=== PATIENT | female | born 1960 | race Caucasian/White ===

== ENCOUNTER 2022-05-09 08:04 | Outpatient (CLI) | payer BC, SELFPAY ==
[2022-05-09 10:14] LABS: Albumin* 4.8 g/dL (3.3-5.0); Chloride* 102 mmol/L (96-114); Sodium* 140 mmol/L (135-149)
[2022-05-09 10:15] LABS: Potassium* 4.6 mmol/L (3.6-5.1)
[2022-05-09 10:17] LABS: Alanine Aminotransferase* 27 U/L (4-35); Alkaline Phosphatase* 80 U/L (40-150); Aspartate Amino Transferase* 55 U/L (12-35); Bilirubin Total* 0.6 mg/dL (0.1-1.5); Blood Urea Nitrogen* 13 mg/dL (7-30); Calcium* 9.9 mg/dL (8.4-10.6); Carbon Dioxide* 27 mmol/L (20-32); Cholesterol* 193 mg/dL (90-199); Creatinine* 0.5 mg/dL (0.5-1.5); Estimated Glomerular Filt Rate 107 ml/min; Glucose* 86 mg/dL (60-115); Triglycerides* 90 mg/dL (40-149)
[2022-05-09 10:18] LABS: HDL Cholesterol* 96 mg/dL (>=50); LDL Cholesterol Calculated 79 mg/dL (<100)
== END 2022-05-09 08:05 | disposition home or self-care (01) ==
PROVIDERS: PCP Family Medicine; Visit Provider Family Medicine
DX: Z13.220 Encounter for screening for lipoid disorders (principal); R63.4 Abnormal weight loss
CPT/HCPCS: 80053; 80061

== ENCOUNTER 2022-07-10 08:12 | Outpatient (CLI) | payer BC, SELFPAY ==
--- NOTE | 2022-07-10 08:15 | CRLHL7_ITS ---
For Patients: As a result of the Century Cures Act, medical imaging exams and procedure reports are released immediately into your electronic medical record. You may view this report before your referring provider. If you have questions, please contact your health care provider. Indication: Rectal pain. Technique: Three plane localizer, axial T1 weighted, axial T2 weighted, sagittal T2 weighted, coronal T2 weighted, 3 plane T2 weighted haste without and with fat suppression, and pre and post contrast axial, coronal, and sagittal T1 weighted fat-suppressed VIBE pulse sequences were obtained. 15 cc of IV dotarem. Comparison: None. Findings: There is an enhancing tract present, which courses through the right ischiorectal/ischioanal fossae, and these findings are consistent with a grade 3 trans sphincteric fistula. There is no associated secondary tract, abscess, or supralevator extension. The tract appears active, with enhancement after gadolinium, with a paucity of T2 prolongation on fluid sensitive sequences with fat suppression. The tract is best seen on series 15, images 52-63. Incidentally noted is enhancement surrounding the right ischial tuberosity, and to a lesser degree, the contralateral ischial tuberosity. Marrow signal intensity is normal. The differential diagnosis includes myositis or muscle strain. See image 48, series 15. Impression: 1. Active fistula tract, with enhancement after gadolinium, and mild prolongation of T2 relaxation times. 2. The tract appears as a transsphincteric fistula, coursing through the right ischiorectal/ischioanal fossae. 3. There is no secondary tract, abscess, or supralevator extension identified. 4. Asymmetric enhancement about the ischial tuberosities, without evidence for osteomyelitis. Consider myositis or muscle strain. Dictated by Silvestre Braga MD @ 07/11/2022 4:28:14 PM (Electronically Signed)
--- OUTSIDE RECORDS SUMMARY | 2022-07-10 08:15 | XMS_ITS | Encounter Summary ---
:1960 [facility] Address [address], [place] [address] Care Team Providers Name Role Phone Unavailable Primary Care Provider Unavailable Reason for Visit Reason Comments CONSULT Encounter Details Date Type Department Care Team Description 09/15/2017 Initial Consult Raphael Zamarripa M D Abnormal immunological finding in serum (Primary Dx); Rheumatology [address] Need for influenza vaccinati on; [address] Carpal tunnel syndrome of right wrist; Drive [place], [place] Fibromyalgia; [place] [address] Lateral epicondylitis of left elbow; [address] Ulnar neuropathy of left upp er extremity; Tobacco abuse Social History Tobacco Use Types Packs/Day Years Used Date Smoking Tobacco: Every Day Cigarettes Smokeless Tobacco: Never Sex Assigned at Date Recorded Not on file documented as of this encounter Last Filed Vital Signs Vital Sign Reading Time Taken Comments Blood Pressure 176/86 09/15/2017 1:28 PM MANAGER LANGUAGE Pulse 103 09/15/2017 1:28 PM MANAGER LANGUAGE Temperature - - Respiratory Rate - - Oxygen Saturation - - Inhaled Oxygen Concentration - - Weight 73.1 kg (161 lb 1.6 oz) 09/15/2017 1:28 PM MANAGER LANGUAGE Height - - Body Mass Index - - documented in this encounter Patient Instructions Patient InstructionsRaphael Merchant MD - 09/15/2017 1:30 PM CST Today, few lab tests, basement, lab. I think you have tennis elbow of the left elbow; This is a tendonitis, that accounts for the pain to touch on the left elbow. You also have ulnar nerve impingement at the left elbow that causes the tingling in the 4th and 5th fingers; This could be helped by surgery. You also have fibromyalgia - this accounts for the tight sore muscles, both arms, neck, upper back. You have some degenerative discs in the neck, but no severely pinched nerves. The neurologist was having trouble explaining your pain based on nerves, and only some of it is (theleft ulnar nerve). So, he ordered a bunch of tests. You were found to have a positive rheumatoid factor of 50, normal less than 14. At this point, I do not think you have rheumatoid arthritis (RA). RA would cause visiblyswollen knuckle joints, very stiff and sore in the morning. 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 The rheumatoid tests can turn positive years before getting RA. Smoking is a risk factor; need to consider quitting. There is another test of RA (blood) and we could do that; If positive, it really means your risk is high. So what to do? For the left hand finger tingling, need to ask Dr. Garvin about surgery For the left elbow tendonitis Stretching Icing Elbow band Possibly physical therapy Maybe cortisone injection. There are medications for fibromyalgia Gabapentin - can help with sleep; is sedating Cymbalta - mood medicine, but helps with pain, non-sedating, slow acting GER LANGUAGE documented in this encounter Progress Notes Raphael Merchant MD - 09/15/2017 1:30 PM CST RHEUMATOLOGY CONSULT NOTE This note was generated with voice activated woolen tester software and may contain typographical and word substitution errors. Consultation was requested by: Dameon Hooks MD for positive rheumatoid factor HPI: The patient is a 57-year-old female. No internal records were available. I was able to find some records from [facility] in the scanned documents. The patient has had bilateral carpal tunnel, ulnar nerve entrapment at the elbow, neck and arm pain. She had an EMG July 02 which showed bilateral carpal tunnel and left ulnar neuropathy. However, these findings were not felt to be severe enough to be accounting for her bilateral arm pain. MRI of the cervical spine at [facility] in July 2017 showed some foraminal stenosis at C4 C5 moderately severe on the left, moderate on the right and some moderate bilateral stenosis at C3 C4 and left C5 C6 but still these findings were not felt to be bad enough to explain her arm pain. She had been found to have arheumatoid factor 50 (0-14). Her sedimentation rate was 10, Sjogren's antibodies negative. She tested negative for hepatitis C, normal hemoglobin A1c, normal CPK, normal TSH, normal vitamin B-12, no evidence of monoclonal gammopathy, Lyme screen was negative. Tissue transglutaminase was negative Patient has seen Dr. Pastor Murphy of the orthopedic and fracture clinic in [place]. The arm pain has been described as constant, some days worse on one arm or the other. She denies relation to position oractivity. The pain has been present since the , slowly worsening over 30 years. She did have some tingling in the left hand 4th and 5th fingers. She feels her arms are somewhat weak. She had some occasional knee pain. Total protein was a little elevated at 8.5 on the protein electrophoresis. We reviewed her history in detail. She actually carries a diagnosis of fibromyalgia for many years ago. This likely accounts for her chronic aching and soreness in the muscles of the neck and upper back proximal arms and so forth. She states since last summer she has had more acute pain at the left lateral elbow. It bothers her with lifting things with an outstretched arm. She also has some tingling in the left 4th and 5th finger consistent with her ulnar neuropathy. She has some lesser tingling in the right hand. She has never been on any medication for fibromyalgia, never tried gabapentin or Cymbalta. She does have some difficulty getting to sleep and staying asleep, somewhat related to the leftlateral elbow pain. Her primary care provider is Mirza Brown MD, [facility], [place], [place]. She has seen Dr. Pastor Garvin at the orthopedic and fracture clinic regarding her DJD of the knees, had prior cortisone and viscosupplements injections. The patient has been a long-time smoker one pack per day since the . She denies any visibly swollen joints. 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 ROS: Comprehensive review of systems form filled out for today's visit was reviewed with the patient, placed into SDOC, and is otherwise negative except: Occasional cough, some gingivitis, occasional loose stools, dry mouth, anxiety. OBJECTIVE: VS: Per flow sheet. Wt: 161 General: NAD. Eyes: Externally clear. Mouth: Moist mucous membranes. No ulcers. Lymph: No cervical or groin adenopathy. Chest: CTA. Heart: RRR, no M/R/G. Abdomen: Bowel sounds present, soft, nontender, no palpable HSM. Musculoskeletal: All 4 limbs examined. The joint exam was negative for synovitis, deformity, or instability with the exception of: No swollen joints over the hands wrists elbows shoulders hips knees ankles or feet. She had multiple fibromyalgia tender points including neck, trapezius muscles, gluteal m uscles, greater trochanters, medial knees, rhomboid muscles, costosternal joints. Neurologic: Subjective tingling left 4th and 5th finger, no overt weakness of intrinsic ulnar muscles of the left hand positive Tinel's test over the wrist. She did have focal tenderness over the left lateral epicondyle, worse with resisted wrist extension Cutaneous: No rashes Spine: Good range of motion ASSESSMENT: 1: History of fibromyalgia, likely accounting for bilateral chronic arm and neck pain 2: Positive rheumatoid factor, likely secondary to smoking, at this point she does not have rheumatoid arthritis 3: Left ulnar neuropathy and right-sided carpal tunnel syndrome 4: Left lateral epicondylitis accounting for more acute left elbow pain 5: Cervical spondylosis PLAN: 1: Long discussion with the patient. I think what has made her case more complex is that there are multiple different issues accounting for pain here. She was found to have a positive rheumatoid factorbut at this point she clinically does not have rheumatoid arthritis. I will check a CCP antibody andhepatitis C serology. Her long-time history of smoking can certainly be a trigger for positive rheumatoid factor and does put her at risk at some point to develop rheumatoid arthritis but at this pointshe does not have the visibly swollen joints or morning stiffness that would suggest she has developed into rheumatoid arthritis. Dr. Hooks has done other appropriate tests such as protein electrophoresis and Sjogren's serologies which are other possible etiologies for a rheumatoid factor but those were normal/negative. I have advised the patient to follow-up with me if she develops swollen tender joints in her hands wrists or feet. 2: We discussed her history of fibromyalgia. This has been long-standing. This likely accounts for her more diffuse arm pain. She is willing to try some gabapentin 100-300 mg at night to help with painand sleep. She will discuss with Dr. Brown her response to this. The dose could be increased further if needed. Cymbalta would be another medication which may be of benefit. 3: In terms of her left lateral epicondylitis, gave her handout on this we discussed rest, icing, tennis elbow band, stretching and other strategies such as cortisone injections. 4: In terms of her left ulnar neuropathy she may need to pursue ulnar nerve transposition surgery, will follow-up with Dr. Garvin. She does have some cervical spondylosis but I do not think those are accounting for any of her hand/arm paresthesias, which seemed better explained on the basis of her ulnar neuropathy and carpal tunnel syndrome. 5: Strongly recommended smoking cessation. She says she is trying to cut back. Dameon Hooks MD , [facility] neurological clinic Pastor Garvin MD, [facility], [place], [place] Mirza Brown MD, [facility], [place], [place] Total time: 60 minutes, greater than 30 minutes counselling and educating on the above GER LANGUAGE documented in this encounter Plan of Treatment Not on filedocumented as of this encounter Results HCAB - Hepatitis C Virus Rosario with Reflex In-House (09/15/2017 2:23 PM MANAGER LANGUAGE) [facility] Method Time Signature Hepatitis C Nonreactive Nonreactive PN SOFT Antibody Specimen Anatomical Collection Method Collection Time Receive d Time (Source) Location / / Volume Laterality 09/15/2017 2:23 PM 8 6:09 MANAGER LANGUAGE PM MANAGER LANGUAGE Narrative PN SOFT - 09/15/2017 7:26 PM MANAGER LANGUAGE Performed at [address] [address] CLIA number [id number] Raphael Merchant MD LAB_1 Performing Organization Address [facility] Phon e Number PN SOFT [address] [place] [address] HBAG - Hepatitis B Surf Ag (09/15/2017 2:23 PM MANAGER LANGUAGE) [facility] Time Signature Hep B Surf Ag Nonreactive Nonreactive PN SOFT Specimen Anatomical Collection Method Collection Time Receive d Time (Source) Location / / Volume Laterality 09/15/2017 2:23 PM 8 6:16 MANAGER LANGUAGE PM MANAGER LANGUAGE Narrative PN SOFT - 09/15/2017 7:04 PM MANAGER LANGUAGE Performed at [address] [address] CLIA number [id number] Raphael Merchant MD LAB_1 Performing Organization Address [facility] Phon e Number PN SOFT [address] [place] [address] HBCB - Hepatitis B Core Antibody Total (09/15/2017 2:23 PM MANAGER LANGUAGE) [facility] Time Signature Hepatitis B Nonreactive PN SOFT Core Total Antibody Specimen Anatomical Collection Method Collection Time Receive d Time (Source) Location / / Volume Laterality 09/15/2017 2:23 PM 8 6:16 MANAGER LANGUAGE PM MANAGER LANGUAGE Narrative PN SOFT - 09/15/2017 7:24 PM MANAGER LANGUAGE Performed at [address] [address] CLIA number [id number] Raphael Merchant MD LAB_1 Performing Organization Address [facility] Phon e Number PN SOFT [address] [place] [address] CCPIG - Cyclic Citrullinated Peptide AB (09/15/2017 2:23 PM MANAGER LANGUAGE) Analysis Performed At [facility] CYCLIC 0.9 0.0 - 7.0 PN SOFT CITRULLINATED IU/mL PEPTIDEAB Comment: Reference Range: <7 Negative, 7 - 10 Equivocal, >10 Posit jaspreet Specimen Anatomical Collection Method Collection Time Receive d Time (Source) Location / / Volume Laterality 09/15/2017 2:23 PM 8 6:07 MANAGER LANGUAGE PM MANAGER LANGUAGE Narrative PN SOFT - 09/17/2017 1:25 PM MANAGER LANGUAGE Performed at [address] [address] CLIA number [id number] Raphael Merchant MD LAB_1 Performing Organization Address [facility] Phon e Number PN SOFT [address] [place] [address] (ABNORMAL) RHF - Rheumatoid Factor (09/15/2017 2:23 PM MANAGER LANGUAGE) athologist Signature Rheumatoid 31 (H) 0 - 30 PN SOFT Factor IU/mL Specimen Anatomical Collection Method Collection Time Receive d Time (Source) Location / / Volume Laterality 09/15/2017 2:23 PM 8 6:16 MANAGER LANGUAGE PM MANAGER LANGUAGE Narrative PN SOFT - 09/15/2017 6:45 PM MANAGER LANGUAGE Performed at [address] [address] CLIA number [id number] Raphael Merchant MD LAB_1 Performing Organization Address City/[facility] Phon e Number PN SOFT [address] [place] [address] documented in this encounter Visit Diagnoses Diagnosis Abnormal immunological finding in serum - Primary Other nonspecific findings on examinatio n of blood Need for influenza vaccination Need for prophylactic vaccination and in oculation against influenza Carpal tunnel syndrome of right wrist Carpal tunnel syndrome Fibromyalgia Mylagia and myositis, unspecified Lateral epicondylitis of left elbow Lateral epicondylitis of elbow Ulnar neuropathy of left upper extremity Tobacco abuse ([facility]C) Tobacco use disorder Abnormal immunological finding in serum Other nonspecific findings on examinatio n of blood documented in this encounter
--- OUTSIDE RECORDS SUMMARY | 2022-07-10 08:15 | XMS_ITS | Encounter Summary ---
:1960 Author Organization [facility] Address [address] [place] [address] Care Team Providers Name Role Phone Unavailable Primary Care Provider Unavailable Encounter Details Date Type Department Care Team Description 09/15/2017 Lab Visit [facility] Abnormal immunological [address] [place] [address] Social History Tobacco Use Types Packs/Day Years Used Date Smoking Tobacco: Every Day Cigarettes Smokeless Tobacco: Never Sex Assigned at Date Recorded Not on file documented as of this encounter Plan of Treatment Not on filedocumented as of this encounter Procedures Procedure Name Priority Date/Time Associated Diagnosis Comme nts HEP B SURFACE Routine 09/15/2017 2:23 PM Abnormal immunologica l Results for this ANTIGEN, NO REFLEX SAMPLE FINISHER finding in serum proce dure are in the results section. ANTI-CCP AB Routine 09/15/2017 2:23 PM Abnormal immunological Results for this SAMPLE FINISHER finding in serum procedure a re in the results section. RHEUMATOID FACTOR, Routine 09/15/2017 2:23 PM Abnormal immunol ogical Results for this QUANT SAMPLE FINISHER finding in serum procedure a re in the results section. HEPATITIS C Routine 09/15/2017 2:23 PM Abnormal immunological Results for this ANTIBODY, WITH SAMPLE FINISHER finding in serum procedure are in REFLEX the results section. HEPATITIS B CORE,AB Routine 09/15/2017 2:23 PM Abnormal immuno logical Results for this SAMPLE FINISHER finding in serum procedure a re in the results section. documented in this encounter Results HCAB - Hepatitis C Virus Rosario with Reflex In-House (09/15/2017 2:23 PM SAMPLE FINISHER) [facility] gist Method Time Signature Hepatitis C Nonreactive Nonreactive PN SOFT Antibody Specimen Anatomical Collection Method Collection Time Receive d Time (Source) Location / / Volume Laterality 09/15/2017 2:23 PM 8 6:09 SAMPLE FINISHER PM SAMPLE FINISHER Narrative PN SOFT - 09/15/2017 7:26 PM SAMPLE FINISHER Performed at [facility], [address] [place] [address] CLIA number [id number] Raphael Merchant MD LAB_1 Performing Organization Address [facility] Phon e Number PN SOFT [address] [place] [address] HBAG - Hepatitis B Surf Ag (09/15/2017 2:23 PM SAMPLE FINISHER) [facility] Method Time Signature Hep B Surf Ag Nonreactive Nonreactive PN SOFT Specimen Anatomical Collection Method Collection Time Receive d Time (Source) Location / / Volume Laterality 09/15/2017 2:23 PM 8 6:16 SAMPLE FINISHER PM SAMPLE FINISHER Narrative PN SOFT - 09/15/2017 7:04 PM SAMPLE FINISHER Performed at [facility], [address] [place] [address] CLIA number [id number] Raphael Merchant MD LAB_1 Performing Organization Address [facility] Phon e Number PN SOFT [address] [place] [address] HBCB - Hepatitis B Core Antibody Total (09/15/2017 2:23 PM SAMPLE FINISHER) [facility] Method Time Signature Hepatitis B Nonreactive PN SOFT Core Total Antibody Specimen Anatomical Collection Method Collection Time Receive d Time (Source) Location / / Volume Laterality 09/15/2017 2:23 PM 8 6:16 SAMPLE FINISHER PM SAMPLE FINISHER Narrative PN SOFT - 09/15/2017 7:24 PM SAMPLE FINISHER Performed at [facility], [address] [place] [address] CLIA number [id number] Raphael Merchant MD LAB_1 Performing Organization Address [facility] Phon e Number PN SOFT [address] [place] [address] CCPIG - Cyclic Citrullinated Peptide AB (09/15/2017 2:23 PM SAMPLE FINISHER) [facility] Signature CYCLIC 0.9 0.0 - 7.0 PN SOFT CITRULLINATED IU/mL PEPTIDEAB Comment: Reference Range: <7 Negative, 7 - 10 Equivocal, >10 Posit jaspreet Specimen Anatomical Collection Method Collection Time Receive d Time (Source) Location / / Volume Laterality 09/15/2017 2:23 PM 8 6:07 SAMPLE FINISHER PM SAMPLE FINISHER Narrative PN SOFT - 09/17/2017 1:25 PM SAMPLE FINISHER Performed at [place] [address] [place] [address] CLIA number [id number] Raphael Merchant MD LAB_1 Performing Organization Address [facility] Phon e Number PN SOFT [address] [place] [address] (ABNORMAL) RHF - Rheumatoid Factor (09/15/2017 2:23 PM SAMPLE FINISHER) athologist Signature Rheumatoid 31 (H) 0 - 30 PN SOFT Factor IU/mL Specimen Anatomical Collection Method Collection Time Receive d Time (Source) Location / / Volume Laterality 09/15/2017 2:23 PM 8 6:16 SAMPLE FINISHER PM SAMPLE FINISHER Narrative PN SOFT - 09/15/2017 6:45 PM SAMPLE FINISHER Performed at [facility], [facility] [place] [address] CLIA number [id number] Raphael Merchant MD LAB_1 Performing Organization Address [facility] Phon e Number PN SOFT [address] [place] [address] documented in this encounter Visit Diagnoses Diagnosis Abnormal immunological finding in serum Other nonspecific findings on examinatio n of blood documented in this encounter
--- OUTSIDE RECORDS SUMMARY | 2022-07-10 08:15 | XMS_ITS | Clinical Summary ---
:1960 [facility] Address [address], [place] [address] Care Team Providers Name Role Phone Needs Pcp, Assignment Primary Care Provider Source Comments You are receiving this document as you are listed as the primary care provider,follow-up provider, or the patient has been referred to you for consultation.This is in compliance with the Medicare and Medicaid EHR Incentive Program,which states Providers who transition their patient to another setting of careor provider of care or refers their patient to another provider of care shouldprovide summarycare record for each transition of care or referral. [employer] Allergies Active Allergy Reactions Severity Noted Date Comments Meperidine Nausea And Vomiting 09/15/2017 Medications Medication Sig Dispensed Refills Start Date End Date Status naproxen (NAPROSYN) 500 TK 1 T PO BID WF 1 7 Active MG tablet PRN P gabapentin (NEURONTIN) Take 1-3 Caps by 90 Cap 3 09/15/2017 Active 100 MG capsule mouth daily at bedtime. Active Problems Problem Noted Date Carpal tunnel syndrome of right wrist 09/15/2017 Abnormal immunological finding in serum 09/15/2017 Fibromyalgia 09/15/2017 Lateral epicondylitis of left elbow 09/15/2017 Ulnar neuropathy of left upper extremity 09/15/2017 Tobacco abuse 09/15/2017 Immunizations Name Administration Dates Next Due Influenza IIV4 (Quadrivalent) 0.5mL (70870) 09/15/2017 Social History Tobacco Use Types Packs/Day Years Used Date Smoking Tobacco: Every Day Cigarettes Smokeless Tobacco: Never Sex Assigned at Date Recorded Not on file Last Filed Vital Signs Vital Sign Reading Time Taken Comments Blood Pressure 176/86 09/15/2017 1:28 PM MONOGRAM TECHNICIAN Pulse 103 09/15/2017 1:28 PM MONOGRAM TECHNICIAN Temperature - - Respiratory Rate - - Oxygen Saturation - - Inhaled Oxygen Concentration - - Weight 73.1 kg (161 lb 1.6 oz) 09/15/2017 1:28 PM MONOGRAM TECHNICIAN Height - - Body Mass Index - - Plan of Treatment Health Maintenance Due Date Last Done Comments Cervical Cancer Screening Due 1960 Colon Cancer Screening Plan Due 1960 Mammogram 1960 COVID-19 Vaccine (#1) 1960 HIV Screening (Preventive 1978 Services) Adult Preventive Visit 1980 DTaP/Tdap/Td (1 - Tdap) 1981 Cholesterol 2007 Zoster/Shingles (1 of 2) 2012 Influenza (#1) 2022 09/15/2017 Hep C Screening (Preventive Completed 09/15/2017 Services) HepA Aged Out No longer eligib le based on patient's age to complete this topic HepB Aged Out No longer eligib le based on patient's age to complete this topic Hib Aged Out No longer eligib le based on patient's age to complete this topic IPV (Polio) Aged Out No longer eligib le based on patient's age to complete this topic MCV4 Aged Out No longer eligib le based on patient's age to complete this topic Pneumococcal Aged Out No longer eligib le based on patient's age to complete this topic Insurance Payer Benefit Plan / Subscriber ID Effective Dates Phone Addre ss Type Group BCBS [place] [id number] 2017-Present [address] [address] [place] [address] [phone] (Work) Care Teams Stable Helper Relationship Specialty Start Date End Date Needs Pcp, Assignment PCP - General 12/16/17 [facility] [place] [place] [address]
--- OUTSIDE RECORDS SUMMARY | 2022-07-10 08:15 | XMS_ITS | Encounter Summary ---
:1960 Author Organization [facility] Address [address], [place] [address] Care Team Providers Name Role Phone Needs Pcp, Assignment Primary Care Provider Reason for Visit Reason Comments Clinician Finder Team Encounter Details Date Type Department Care Team Description 06/25/[address] [facility] 3850 Needs Pcp, Clinician Finder Team Internal Medicine Assignment [address] [facility] [place] [address] [phone] Social History Tobacco Use Types Packs/Day Years Used Date Smoking Tobacco: Every Day Cigarettes Smokeless Tobacco: Never Sex Assigned at Date Recorded Not on file documented as of this encounter Plan of Treatment Not on filedocumented as of this encounter Visit Diagnoses Not on filedocumented in this encounter Care Teams Reinstatement Clerk Relationship Specialty Start Date End Date Needs Pcp, Assignment PCP - General 12/16/17 [place] [address] documented as of this encounter
== END 2022-07-10 08:13 | disposition home or self-care (01) ==
PROVIDERS: PCP Family Medicine; Visit Provider Surgery
DX: K62.89 Other specified diseases of anus and rectum (principal)
CPT/HCPCS: 72197; A9575

== ENCOUNTER 2022-07-24 11:34 | Emergency (ER) | payer BC, SELFPAY ==
[2022-07-24 11:46] VITALS: BP 138/82; PULSE 80; RESP 18; TEMP 36.5; O2SAT 98; BMI 22.1
--- NOTE | 2022-07-24 11:54 | CRLHL7_ITS ---
For Patients: As a result of the Century Cures Act, medical imaging exams and procedure reports are released immediately into your electronic medical record. You may view this report before your referring provider. If you have questions, please contact your health care provider. Indication: TRAUMA Technique: Right hand 3 views. Comparison: None Findings: Bones: Alignment is normal. No fractures or bone lesions. Small nikky ossicle adjacent to the ulnar styloid. Joint spaces: Minimal degenerative changes. Soft tissues: Unremarkable. Impression: No sign of acute injury. Dictated by Cholo Mishra MD @ 07/24/2022 12:43:15 PM (Electronically Signed)
--- OUTSIDE RECORDS SUMMARY | 2022-07-24 12:14 | XMS_ITS | Encounter Summary ---
:1960 Author Organization [facility] Address [address], [place] [address] Care Team Providers Name Role Phone Needs Pcp, Assignment Primary Care Provider Reason for Visit Reason Comments Clinician Finder Team Encounter Details Date Type Department Care Team Description 06/25/2018 Telephone [facility] 3850 Needs Pcp, Clinician Finder Team Internal Medicine Assignment 38[address] [facility] [place] [address] [phone] Social History Tobacco Use Types Packs/Day Years Used Date Smoking Tobacco: Every Day Cigarettes Smokeless Tobacco: Never Sex Assigned at Date Recorded Not on file documented as of this encounter Plan of Treatment Not on filedocumented as of this encounter Visit Diagnoses Not on filedocumented in this encounter Care Teams Body Shop Technician Relationship Specialty Start Date End Date Needs Pcp, Assignment PCP - General 12/16/17 [place] [address] documented as of this encounter
--- OUTSIDE RECORDS SUMMARY | 2022-07-24 12:14 | XMS_ITS | Encounter Summary ---
:1960 Author Organization [email or web address] Address [address], [place] [address] Care Team Providers Name Role Phone Unavailable Primary Care Provider Unavailable Reason for Visit Reason Comments CONSULT Encounter Details Date Type Department Care Team Description 09/15/2017 Initial Consult Raphael Zamarripa M D Abnormal immunological finding in serum (Primary Dx); Rheumatology [address] Need for influenza vaccinati on; [address] Carpal tunnel syndrome of right wrist; [address] [place], [place] Fibromyalgia; [place] [address] Lateral epicondylitis of left elbow; [address] 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] stiff and sore in the morning. 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 Consultation was requested by: Dameon Hooks MD for positive rheumatoid factor HPI: The patient is a 57-year-old female. No internal records were available. I was able to find some records from [facility] in the scanned documents. The patient has had bilateral carpal tunnel, ulnar nerve entrapment at the elbow, neck and arm pain. She had an EMG July 02 which showed bilateral carpal tunnel and left ulnar neuropathy. However, these findings were not felt to be severe enough to be accounting for her bilateral arm pain. MRI of the cervical spine at [facility] at [facility] in July 2017 showed some foraminal stenosis [...] of the orthopedic and fracture clinic in [place]. The arm pain has been described as [...] primary care provider is Mirza Brown MD, [facility], [place], [place]. She has seen Dr. 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 Dameon Hooks MD , [facility] neurological clinic Pastor Garvin MD, orthopedic and fracture clinic, [place], [place] Mirza Brown MD, [facility], [place], [place] Total time: 60 minutes, greater than 30 minutes counselling and educating on the above ATRIC DENTAL HYGIENIST documented in this encounter Plan of Treatment Not on filedocumented as of this encounter Results HCAB - Hepatitis C Virus Rosario with Reflex In-House (09/15/2017 2:23 PM PEDIATRIC DENTAL HYGIENIST) [facility] Method Time Signature Hepatitis C Nonreactive Nonreactive PN SOFT Antibody Specimen Anatomical Collection Method Collection Time Receive d Time (Source) Location / / Volume Laterality 09/15/2017 2:23 PM 8 6:09 PEDIATRIC DENTAL HYGIENIST PM PEDIATRIC DENTAL HYGIENIST Narrative PN SOFT - 09/15/2017 7:26 PM PEDIATRIC DENTAL HYGIENIST Performed at [address] [address] CLIA number [id number] Raphael Merchant MD LAB_1 Performing Organization Address [facility] Phon e Number PN SOFT [address] [place] [address] HBAG - Hepatitis B Surf Ag (09/15/2017 2:23 PM PEDIATRIC DENTAL HYGIENIST) [facility] Time Signature Hep B Surf Ag Nonreactive Nonreactive PN SOFT Specimen Anatomical Collection Method Collection Time Receive d Time (Source) Location / / Volume Laterality 09/15/2017 2:23 PM 8 6:16 PEDIATRIC DENTAL HYGIENIST PM PEDIATRIC DENTAL HYGIENIST Narrative PN SOFT - 09/15/2017 7:04 PM PEDIATRIC DENTAL HYGIENIST Performed at [address] [address] CLIA number [id number] Raphael Merchant MD LAB_1 Performing Organization Address [facility] Phon e Number PN SOFT [address] [place] [address] HBCB - Hepatitis B Core Antibody Total (09/15/2017 2:23 PM PEDIATRIC DENTAL HYGIENIST) [facility] Time Signature Hepatitis B Nonreactive PN SOFT Core Total Antibody Specimen Anatomical Collection Method Collection Time Receive d Time (Source) Location / / Volume Laterality 09/15/2017 2:23 PM 8 6:16 PEDIATRIC DENTAL HYGIENIST PM PEDIATRIC DENTAL HYGIENIST Narrative PN SOFT - 09/15/2017 7:24 PM PEDIATRIC DENTAL HYGIENIST Performed at [address] [address] CLIA number [id number] Raphael Merchant MD LAB_1 Performing Organization Address [facility] Phon e Number PN SOFT [address] [place] [address] CCPIG - Cyclic Citrullinated Peptide AB (09/15/2017 2:23 PM PEDIATRIC DENTAL HYGIENIST) Analysis Performed At [facility] CYCLIC 0.9 0.0 - 7.0 PN SOFT CITRULLINATED IU/mL PEPTIDEAB Comment: Reference Range: <7 Negative, 7 - 10 Equivocal, >10 Posit jaspreet Specimen Anatomical Collection Method Collection Time Receive d Time (Source) Location / / Volume Laterality 09/15/2017 2:23 PM 8 6:07 PEDIATRIC DENTAL HYGIENIST PM PEDIATRIC DENTAL HYGIENIST Narrative PN SOFT - 09/17/2017 1:25 PM PEDIATRIC DENTAL HYGIENIST Performed at [address] [address] CLIA number [id number] Raphael Merchant MD LAB_1 Performing Organization Address [facility] Phon e Number PN SOFT [address] [place] [address] (ABNORMAL) RHF - Rheumatoid Factor (09/15/2017 2:23 PM PEDIATRIC DENTAL HYGIENIST) athologist Signature Rheumatoid 31 (H) 0 - 30 PN SOFT Factor IU/mL Specimen Anatomical Collection Method Collection Time Receive d Time (Source) Location / / Volume Laterality 09/15/2017 2:23 PM 8 6:16 PEDIATRIC DENTAL HYGIENIST PM PEDIATRIC DENTAL HYGIENIST Narrative PN SOFT - 09/15/2017 6:45 PM PEDIATRIC DENTAL HYGIENIST Performed at [address] [address] CLIA number [id number] Raphael Merchant MD LAB_1 Performing Organization Address [facility] Phon e Number PN SOFT [address] [place] [address] documented in this encounter Visit Diagnoses Diagnosis [...]
--- OUTSIDE RECORDS SUMMARY | 2022-07-24 12:14 | XMS_ITS | Clinical Summary ---
:1960 [facility] Address [address], [place] [address] Care Team Providers Name Role Phone Needs [...] for each transition of care or referral. [employer] Allergies Active Allergy Reactions Severity Noted Date [...] Dates Next Due Influenza IIV4 (Quadrivalent) 0.5mL (86493) 09/15/2017 Social History Tobacco Use Types Packs/Day Years Used Date Smoking Tobacco: Every Day Cigarettes Smokeless Tobacco: Never Sex Assigned at Date Recorded Not on file Last Filed Vital Signs Vital Sign Reading Time Taken Comments Blood Pressure 176/86 09/15/2017 1:28 PM HEALTH RECORD TECHNICIAN Pulse 103 09/15/2017 1:28 PM HEALTH RECORD TECHNICIAN Temperature - - Respiratory Rate - - Oxygen Saturation - - Inhaled Oxygen Concentration - - Weight 73.1 kg (161 lb 1.6 oz) 09/15/2017 1:28 PM HEALTH RECORD TECHNICIAN Height - - Body Mass Index [...] Phone Addre ss Type Group [place]BS [place] [id number] 2017-Present [address] [address] [place] [address] [phone] (Work) Care Teams Fur Scraper Relationship Specialty Start Date End Date Needs Pcp, Assignment PCP - General 12/16/17 [facility] [address]
--- OUTSIDE RECORDS SUMMARY | 2022-07-24 12:14 | XMS_ITS | Encounter Summary ---
:1960 [facility] Address [address] [place] [address] Care Team Providers Name Role Phone Unavailable Primary Care Provider Unavailable Encounter Details Date Type Department Care Team Description 09/15/2017 Lab Visit [facility] Abnormal immunological [address] [place] [address] Social History Tobacco Use Types Packs/Day Years [...] l Results for this ANTIGEN, NO REFLEX HAND CLERICAL VERIFIER finding in serum proce dure are in the results section. ANTI-CCP AB Routine 09/15/2017 2:23 PM Abnormal immunological Results for this HAND CLERICAL VERIFIER finding in serum procedure a re in the results section. RHEUMATOID FACTOR, Routine 09/15/2017 2:23 PM Abnormal immunol ogical Results for this QUANT HAND CLERICAL VERIFIER finding in serum procedure a re in the results section. HEPATITIS C Routine 09/15/2017 2:23 PM Abnormal immunological Results for this ANTIBODY, WITH HAND CLERICAL VERIFIER finding in serum procedure are in REFLEX the results section. HEPATITIS B CORE,AB Routine 09/15/2017 2:23 PM Abnormal immuno logical Results for this HAND CLERICAL VERIFIER finding in serum procedure a re in the results section. documented in this encounter Results HCAB - Hepatitis C Virus Rosario with Reflex In-House (09/15/2017 2:23 PM HAND CLERICAL VERIFIER) [facility] gist Method Time Signature Hepatitis C Nonreactive Nonreactive PN SOFT Antibody Specimen Anatomical Collection Method Collection Time Receive d Time (Source) Location / / Volume Laterality 09/15/2017 2:23 PM 8 6:09 HAND CLERICAL VERIFIER PM HAND CLERICAL VERIFIER Narrative PN SOFT - 09/15/2017 7:26 PM HAND CLERICAL VERIFIER Performed at [facility], [address] [place] [address] CLIA number [id number] Raphael Merchant MD LAB_1 Performing Organization Address [facility] Phon e Number PN SOFT [address] [place] [address] HBAG - Hepatitis B Surf Ag (09/15/2017 2:23 PM HAND CLERICAL VERIFIER) [facility] Method Time Signature Hep B Surf Ag Nonreactive Nonreactive PN SOFT Specimen Anatomical Collection Method Collection Time Receive d Time (Source) Location / / Volume Laterality 09/15/2017 2:23 PM 8 6:16 HAND CLERICAL VERIFIER PM HAND CLERICAL VERIFIER Narrative PN SOFT - 09/15/2017 7:04 PM HAND CLERICAL VERIFIER Performed at [facility], [address] [place] [address] CLIA number [id number] Raphael Merchant MD LAB_1 Performing Organization Address [facility] Phon e Number PN SOFT [address] [place] [address] HBCB - Hepatitis B Core Antibody Total (09/15/2017 2:23 PM HAND CLERICAL VERIFIER) [facility] Method Time Signature Hepatitis B Nonreactive PN SOFT Core Total Antibody Specimen Anatomical Collection Method Collection Time Receive d Time (Source) Location / / Volume Laterality 09/15/2017 2:23 PM 8 6:16 HAND CLERICAL VERIFIER PM HAND CLERICAL VERIFIER Narrative PN SOFT - 09/15/2017 7:24 PM HAND CLERICAL VERIFIER Performed at [facility], [address] [place] [address] CLIA number [id number] Raphael Merchant MD LAB_1 Performing Organization Address [facility] Phon e Number PN SOFT [address] [place] [address] CCPIG - Cyclic Citrullinated Peptide AB (09/15/2017 2:23 PM HAND CLERICAL VERIFIER) [facility] Time Signature CYCLIC 0.9 0.0 - 7.0 PN SOFT CITRULLINATED IU/mL PEPTIDEAB Comment: Reference Range: <7 Negative, 7 - 10 Equivocal, >10 Posit jaspreet Specimen Anatomical Collection Method Collection Time Receive d Time (Source) Location / / Volume Laterality 09/15/2017 2:23 PM 8 6:07 HAND CLERICAL VERIFIER PM HAND CLERICAL VERIFIER Narrative PN SOFT - 09/17/2017 1:25 PM HAND CLERICAL VERIFIER Performed at [place] [address] [place] [address] CLIA number [id number] Raphael Merchant MD LAB_1 Performing Organization Address [facility] Phon e Number PN SOFT [address] [place] [address] (ABNORMAL) RHF - Rheumatoid Factor (09/15/2017 2:23 PM HAND CLERICAL VERIFIER) athologist Signature Rheumatoid 31 (H) 0 - 30 PN SOFT Factor IU/mL Specimen Anatomical Collection Method Collection Time Receive d Time (Source) Location / / Volume Laterality 09/15/2017 2:23 PM 8 6:16 HAND CLERICAL VERIFIER PM HAND CLERICAL VERIFIER Narrative PN SOFT - 09/15/2017 6:45 PM HAND CLERICAL VERIFIER Performed at [facility], [facility] [place] [address] CLIA number [id number] Raphael Merchant MD LAB_1 Performing Organization Address [facility] Phon e Number PN SOFT [address] [place] [address] documented in this encounter Visit Diagnoses Diagnosis Abnormal immunological finding in serum Other nonspecific findings on examinatio n of blood documented in this encounter
--- NOTE | 2022-07-24 12:33 | ED_ITS ---
HPI - General Adult General Chief complaint: Extremity Pain/Injury, Upper Stated complaint: Smashed right hand in car door Time Seen by Provider: 07/24/22 11:38 Source: patient Mode of arrival: ambulatory Limitations: no limitations History of Present Illness HPI narrative: 62-year-old female coming in today after slamming her right hand in her car door. She has pain right in the center of the hand. Denies pain or injuries anywhere else that are new today. He is not blood thinners. This occurred approximately 1 hour ago. Related Data Home Medications Medication Instructions Recorded Confirmed cyanocobalamin (vitamin B-12) 1,000 mcg PO DAILY 05/09/22 07/11/22 1,000 mcg tablet multivitamin (Multiple Vitamins 1 tab PO QDAY 05/09/22 07/11/22 tablet) Previous Rx's Medication Instructions Recorded escitalopram oxalate 10 mg tablet 10 mg PO QDAY #30 tabs 05/09/22 Allergies Allergy/AdvReac Type Severity Reaction Status Date / Time Sulfa (Sulfonamide Allergy Intermediate Rash Verified 07/11/22 15:29 Antibiotics) meperidine Allergy Mild hives, Verified 07/11/22 15:29 itching Molds & Smuts Allergy Unknown Uncoded 07/11/22 15:29 Review of Systems Narrative: Denies other injury. PFSH PFSH Medical History Anorectal fistula COVID History of osteoarthritis Rectal abscess Surgical History History of exploratory laparotomy History of partial surgical removal of colon History of vaginal hysterectomy S/P cholecystectomy Status post right rotator cuff repair (07/21/19) Social History Narrative: SOCIAL HISTORY: She is with 2 children. She works at [employer]. HABITS: Exercise is work mainly. 10 drinks/wk. No recreational drug use. smokes 1 ppd. FAMILY HISTORY: Father with small cell lung CA, of this. Brother of metastatic lung CA. No personal or family history of anesthesia reactions or bleeding disorders. Smoking Status: Current every day smoker Little interest or pleasure in doing things: nearly every day Feeling down, depressed, or hopeless: several days Exam Narrative: Exam Narrative: Well-nourished well-developed patient in no acute distress. Alert and oriented. Answers questions appropriately. HEENT: Normocephalic atraumatic. Pupils are equally round reactive to light. Extraocular muscles are intact. Conjunctivae are moist without any icterus noted. Extremities: Patient has swelling and ecchymoses just proximal to the 2nd knuckle. She has some tenderness there but is very mild. She has no significant tenderness over the knuckles themselves. She has no tenderness over the meta carpals. She can open and close her hand in a fist without difficulty. Normal radial pulse. Fingers are all vascularly intact. Const: Vital Signs, click to edit/add: Vital Signs - 24 hr 07/24/22 11:46 Temperature 97.7 F Pulse Rate [Right Pulse Oximeter] 80 Respiratory Rate 18 Blood Pressure [Ri ght Upper Arm] 138/82 Pulse Oximetry 98 Oxygen Delivery Me thod Room Air Course Course Hospital Course: X-ray of the hand, read by me, does not show any acute fractures. Vital Signs Vital signs: Initial Vital Signs Temperature 97.7 F 07/24/22 11:46 Temperature Source Temporal Artery Scan 07/24/22 11:46 Pulse Rate 80 07/24/22 11:46 Respiratory Rate 18 07/24/22 11:46 Blood Pressure 138/82 07/24/22 11:46 Blood Pressure Mean 100 07/24/22 11:46 Blood Pressure Position Sitting 07/24/22 11:46 Pulse Oximetry 98 07/24/22 11:46 Oxygen Delivery Method 07/24/22 11:46 Vital Signs Temperature 97.7 F 07/24/22 11:46 Pulse Rate 80 07/24/22 11:46 Respiratory Rate 18 07/24/22 11:46 Blood Pressure 138/82 07/24/22 11:46 Pulse Oximetry 98 07/24/22 11:46 Oxygen Delivery Method 07/24/22 11:46 Temperature 97.7 F 07/24/22 11:46 Pulse Rate 80 07/24/22 11:46 Respiratory Rate 18 07/24/22 11:46 Blood Pressure 138/82 07/24/22 11:46 Pulse Oximetry 98 07/24/22 11:46 Oxygen Delivery Method 07/24/22 11:46 Medical Decision Making MDM Narrative Medical decision making narrative: 62-year-old female contusion to the right hand. Discussed symptomatic treatment. Patient was agreeable and had no other questions. Imaging Data X-ray hand: Attestation: I have reviewed the pertinent imaging results. Radiologist's impression: Right hand 3 views. Comparison: None Findings: Bones: Alignment is normal. No fractures or bone lesions. Small nikky ossicle adjacent to the ulnar styloid. Joint spaces: Minimal degenerative changes. Soft tissues: Unremarkable. Impression: No sign of acute injury. Discharge Plan Discharge Clinical Impression: Contusion of hand Patient Disposition: Home, Self-Care Condition: Stable Additional Instructions: Elevate above the heart whenever you are resting. Okay to use ice to sore area- do not apply ice directly to skin. Okay to take Tylenol as needed/as directed for discomfort. Prescriptions: No Action multivitamin [Multiple Vitamins] Tablet 1 tab PO QDAY cyanocobalamin (vitamin B-12) 1,000 mcg tablet 1,000 mcg PO DAILY escitalopram oxalate 10 mg tablet 10 mg PO QDAY Qty: 30 1RF Follow Up/Referrals: Mirza Brown MD [Primary Care Provider] - Stand Alone Forms: [facility] Info Instructions
== END 2022-07-24 13:05 | disposition home or self-care (01) ==
PROVIDERS: Emergency Provider Family Medicine; PCP Family Medicine
DX: S60.221A Contusion of right hand, initial encounter (principal); W23.0XXA Caught, crushed, jammed, or pinched between moving objects, initial encounter
CPT/HCPCS: 73130; 99283; 99284

== ENCOUNTER 2022-07-26 14:28 | Outpatient (CLI) | payer BC, SELFPAY ==
--- NOTE | 2022-07-26 14:40 | CRLHL7_ITS ---
For Patients: As a result of the Century Cures Act, medical imaging exams and procedure reports are released immediately into your electronic medical record. You may view this report before your referring provider. If you have questions, please contact your health care provider. BILATERAL SCREENING MAMMOGRAM WITH COMPUTER-AIDED DETECTION TECHNIQUE: CC and MLO views were obtained. These mammographic images have been obtained using full-field digital technique. These mammographic images were interpreted with the benefit of computer-aided detection. COMPARISON FILM: 03/16/19, 01/01/18, 08/14/15 [place]. FINDINGS: The breasts are heterogeneously dense, which may obscure small masses IMPRESSION: There is no radiographic evidence for malignancy. ASSESSMENT: BI-RADS Category 1: Negative RECOMMENDATION: Routine screening mammogram in 1 year. A lay language report of this examination will be provided to the patient. Cholo Mishra M.D. Diagnostic Radiologist [email or web address] [place]/Dictated by: Cholo Mishra MD @ 07/29/2022 9:43:00 AM (Electronically Signed)
== END 2022-07-26 14:29 | disposition home or self-care (01) ==
LOC: MAMMO 14:29
PROVIDERS: PCP Family Medicine; Visit Provider Family Medicine
DX: Z12.31 Encounter for screening mammogram for malignant neoplasm of breast (principal); R92.2 Inconclusive mammogram
CPT/HCPCS: 77063; 77067

== ENCOUNTER 2022-12-27 09:30 | Outpatient (RCR) | payer BC, SELFPAY ==
--- NOTE | 2022-12-13 17:47 | OT.OPOE ---
OT Outpatient Ortho Eval OT Outpatient Ortho Eval Start: 12/11/22 12:30 Freq: Status: Active Protocol: Document 12/11/22 12:31 LCN (Rec: 12/11/22 12:34 LCN [id number]) E-signed By Mitra Najera, OTR/L, CLT OT OP Ortho Eval Details Type Type Eval Complexity Low Insurance Information Insurance Information Blue [employer] Outpatient History/Precautions Current Condition/Medical Diagnosis Referring Provider Meli Metha. PCP Mirza Marsh Treatment Diagnosis Left small finger fracture of proximal area of prox phalanx. Date of Onset 11/12/22 Other Conditions possible fibromyalgia. Did have pelvic surgery in Aug 2022 with 5-6 week recovery. Has had R RTC repair, may be needing TSA. and L RTC is needing a repair. 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 Currently working half days for her L small finger fracture through 12/29/22. Social History Critical Job Demands Pull,Lift,Prolonged Standing Other Critical Job Demands handling products, , money, chisholm box, scanning, moving cart items Hobbies spending time with 6 grandchildren age 3 -18. Fitness No regular regimen Oriented Mental Status No Concerns Ortho Subjective Subjective Subjective Rema Barney was walking through a rough parking lot, lost footing while holding her 3 y/o grandson and caught herself in a pot hole lifting his head, then head pinning her hand into edge of large pot hole on 11/12/22. She was sent home from work the next day and X ray reveals fracture at proximal shaft of proximal phalanx of L small finger. She was casted (had it replaced 2x due to edema/bruising). Released to velcro ulnar gutter forearm based splint with Meli Mehta on . Pain Assessment Pain Present Pain Present Pain Reported Location L small finger Description Tightness,Pressure,Throbbing Intensity 7 Goniometric Comments Goniometric Comments Goniometric Comments AROM-- of wrist planes are WNL . Flexion of small finger MCP 15 of 90, PIP 60 of 100, DIP 65 of 65. Composite flexion to 2.7 cm finger tip to distal palmar crease), no deviation or rotation noted during flexion. Ring finger also stiff, at MCP at PIP, limiting composite flexion to 1.5 of where .5 is WNL. Thumb has full opposition, IF/RF WNL. Edema-- SF Prox Phalanx of L side 5.5 cm and R is 4.8 cm. skin is dry, flakey distended with mild ecchymosis. Straddle Truck Driver tested using other digits of L hands, carefully for baseline, avoiding increase of pain. R social media editor is 45# , Lis 20 #. car pinch is 13# R and 10. 5 # L and 3 pt pinch is 14# andL is 11#. OT Objective Data Hand Hand Dominance Right OT Problems Problems Problems Decreased Strength,Decreased Range of Motion,Lifting, Pinching Other Problems Opening Containers,Dressing Patient Potential Excellent Assessment Assessment Assessment Sandy is having limited ROM, stiffness, pain,edema and reduced strength for using her L hand in ADL/vocational tasks after the fracture of L small finger proximal phalanx. 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 Occupational Therapy Treatment Plan - OP Potential Rehabilitation Potential Excellent Set Goals Goals Set with Patient Yes Goals Goals In 8 weeks, pt will demonstrate:? 1) Decreased pn to <2/10 80% of the time with sustained gripping, carrying groceries, scanning purchase items and cooking/cleaning tasks. 2) I HEP for stretching, gradual strengthening and self mgmt strategies. 3) improved L social media editor strength to 35# and pinch to 12# with L composite RF/SF flexion to <1. 0 CM with pain < 1/10. 4)??Pt to be fit with functional bracing (for PROM assist, protection at work) and use adaptive strategies to protect joint integrity to support less pain with ADL Target Date 02/09/23 Progress set Treatment Plan Treatment Plan Evaluation,Edema Control,Joint Mobilization,Manual Therapy, Splinting,Therapeutic Exercise ,Self-Care/Home Management, Education Expected Frequency 1-2x Week Expected Duration 6-8 Weeks Certification Certification I Certify That: Therapy Services Provided, Therapy Plan Established, Therapy Plan Reviewed Recertification Information Recertification Information Initial Certification Date 12/11/22 Recertification Due Date 02/09/23 Provider Signature Shows Agreement With POC & Medical Necessity Physician Comment/Change Comment or Changes Physician NPI Number #
== END 2023-04-26 23:59 | disposition home or self-care (01) ==
PROVIDERS: PCP Family Medicine; Visit Provider Physician Assistant Surgical
DX: S62.619A Displaced fracture of proximal phalanx of unspecified finger, initial encounter for closed fracture (principal); Z51.89 Encounter for other specified aftercare
CPT/HCPCS: 97110; 97140; 97165; L3913; X5282

== ENCOUNTER 2023-04-08 11:30 | Outpatient (CLI) | payer BC, SELFPAY ==
[2023-04-08 21:34] LABS: Mononuclear WBC Body Fluid* 9 %; Polynuclear WBC Body Fluid* 91 %; RBC, Body Fluid* 13000 Cells/uL; WBC, Body Fluid* 74541 Cells/uL
[2023-04-08 21:41] LABS: BF Clarity* Cloudy; BF Color Xanthochromic; BF Total Volume* 22
== END 2023-04-08 11:31 | disposition home or self-care (01) ==
PROVIDERS: PCP Family Medicine; Visit Provider Physician Assistant Surgical
DX: M17.11 Unilateral primary osteoarthritis, right knee (principal)
CPT/HCPCS: 87070; 87075; 87205; 89051; 89060

== ENCOUNTER 2024-04-08 10:50 | Emergency (ER) | payer BC, SELFPAY ==
[2024-04-08 11:05] VITALS: BP 163/90; PULSE 99; RESP 20; TEMP 36.4; O2SAT 97; BMI 20.6
--- NOTE | 2024-04-08 11:13 | ED_ITS ---
HPI - General Adult General Time Seen by Provider: 11:13 Date Seen: 04/08/24 Chief complaint: Chest Pain Stated complaint: chest pain x 2 weeks Time Seen by Provider: 04/08/24 11:07 Source: patient and RN notes reviewed Mode of arrival: ambulatory Limitations: no limitations History of Present Illness HPI narrative: This 64-year-old female was referred from her clinic appointment to the ER. She notes she has had about 2 weeks of pleuritic left chest pain, feels it along the base of the left chest wall, under the breast. She has had some night sweats but no fevers or chills. It wraps around her side into her back, she does note some increased reflux symptoms as well. One night last 2 week she woke up in the middle of the night with heartburn. Pain is progressively worse. She does feel short of breath with it. It is there constantly. She does have a smoker's cough, does smoke, pain is worse with coughing, bending down and breathing. She was not sick with any illness prior to the onset of this. She did try to schedule a clinic appointment, has noticed about a 45 lb weight loss over the last couple years. She does feel increased abdominal gas, increased abdominal bloating, some upper abdominal discomfort. She has had hysterectomy for history of cervical cancer back in the , since then has developed urinary urgency and urge incontinence. No other urinary symptoms. Her gallbladder is out. She has had a portion of her colon removed for diverticulitis per report. She has a dad and brother that of lung cancer, she has a brother that has cardiac issues. She herself has never had kidney stones. Related Data Previous Rx's ?Medication ?Instructions ?Recorded methocarbamol 500 mg tablet 500 - 750 mg (1 - 1.5 x 500 mg) PO 12/30/23 QHS #10 tabs prednisone 10 mg tablet 10 mg PO DIRECTED #30 tabs 12/30/23 omeprazole 40 mg capsule,delayed 40 mg PO DAILY #30 caps 04/08/24 release Allergies Allergy/AdvReac Type Severity Reaction Status Date / Time Sulfa (Sulfonamide Allergy Intermediate Rash Verified 01/01/24 09:14 Antibiotics) meperidine Allergy Mild hives, Verified 01/01/24 09:14 itching cyclobenzaprine Allergy Verified 04/08/24 11:10 [From Flexeril] Molds & Smuts Allergy Unknown Uncoded 01/01/24 09:14 Review of Systems Status of ROS: Reports: 6 or more systems reviewed and unremarkable except as noted in History and below [facility] Medical History (Updated 04/08/24 @ 14:23 by Vanessa Wells MD) GERD (gastroesophageal reflux disease) ?K21.9 - Gastro-esophageal reflux disease without esophagitis (ICD-10) Phalanx, proximal fracture of finger ?S62.619A - Displaced fracture of proximal phalanx of unspecified finger, initial encounter for closed fracture (ICD-10) Hand pain ?M79.643 - Pain in unspecified hand (ICD-10) 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 - Anorectal fistula (ICD-10) Rectal abscess ?K61.1 - Rectal abscess (ICD-10) COVID ?U07.1 - COVID-19 (ICD-10) History of osteoarthritis ?Z87.39 - Personal history of other diseases of the musculoskeletal system and connective tissue (ICD-10) Surgical History Status post right rotator cuff repair (07/21/19) ?Z98.890 - Other specified postprocedural states (ICD-10) S/P cholecystectomy ?Z90.49 - Acquired absence of other specified parts of digestive tract (ICD- 10) History of vaginal hysterectomy ?Z90.710 - Acquired absence of both cervix and uterus (ICD-10) History of partial surgical removal of colon ?Z90.49 - Acquired absence of other specified parts of digestive tract (ICD- 10) History of exploratory laparotomy ?Z98.890 - Other specified postprocedural states (ICD-10) Social History Narrative: SOCIAL HISTORY: She is with 2 children. She works at [employer]. HABITS: Exercise is work mainly. 10 drinks/wk. No recreational drug use. smokes 1 ppd. FAMILY HISTORY: Father with small cell lung CA, of this. Brother of metastatic lung CA. No personal or family history of anesthesia reactions or bleeding disorders. Smoking Status: Current every day smoker Do you use any of these nicotine containing products: None Second hand tobacco smoke exposure: Yes Little interest or pleasure in doing things: more than half the days Feeling down, depressed, or hopeless: more than half the days Exam Const: Vital Signs, click to edit/add: Vital Signs - 24 hr 04/08/24 11:05 Temperature 97.5 F L Pulse Rate [Left P ulse Oximeter] 99 Respiratory Rate 20 Blood Pressure [Le ft Upper Arm] 163/90 H Pulse Oximetry 97 Oxygen Delivery Me thod Room Air This 64-year-old female is alert, interactive, no apparent distress. Resting comfortably in the bed in exam room 6. Pupils equal round reactive, sclerae clear, extraocular muscles intact. Symmetrical facial function. Speech is normal, able to speak in complete sentences. Neck supple, no adenopathy, no thyromegaly masses or nodules. Lungs are clear, distant breath sounds but no wheezing or crackles, can hear lung bases good. No evidence of any rash. CV regular rate and rhythm, soft 1/6 right upper sternal border systolic murmur, normal S1-S2, no S3-S4. Abdomen is soft, no rebound or guarding, no organomegal y noted, no masses, normal bowel sounds. She has no lower extremity edema. Skin appears tanned and without rash. Documenting provider has reviewed patient's vital signs: yes Course Course ED Course: With her smoking status, weight loss in other symptoms, do worry about the potential for malignancy as well as possibility of pulmonary embolus as the cause of her chest pain and respiratory symptoms. We will image with chest CT PE protocol and go through abdomen and pelvis. We need to rule out these conditions. Other thoughts are worsening reflux with hiatal hernia, reflux esophagitis, other issues with chronic heartburn. We will do the CT imaging and if labs and CT imaging are negative, may need to proceed with EGD. Will get full complement of labs, will consider cardiac causes such as ischemia with EKG and troponin. Her pain has been present for about 2 weeks now is now constant, solitary troponin and EKG should suffice to rule in or out acute ischemic disease. Reevaluation(s) Time of Reevaluation #1: 14:15 Reevaluation #1: Reviewed with patient her CT findings. There is no pulmonary embolus seen despite elevated D-dimer. I do think her D-dimer might being inflammatory marker here. On her imaging, she does have a few pulmonary nodules that will require a 1 year interval follow-up. She can have that scheduled through clinic. On the abdominal imaging, the gastric antrum is thickened. We discussed having her go on omeprazole and get an EGD. She would like me to get this scheduled. She will schedule follow-up in clinic with her primary. Vital Signs Vital signs: Initial Vital Signs Temperature 97.5 F L 04/08/24 11:05 Temperature Source Temporal Artery Scan 04/08/24 11:05 Pulse Rate 99 04/08/24 11:05 Pulse Rhythm Regular 04/08/24 11:05 Pulse Strength 3+ Normal 04/08/24 11:05 Respiratory Rate 20 04/08/24 11:05 Blood Pressure 163/90 H 04/08/24 11:05 Blood Pressure Mean 114 H 04/08/24 11:05 Blood Pressure Position Sitting 04/08/24 11:05 Pulse Oximetry 97 04/08/24 11:05 Oxygen Delivery Method Room Air 04/08/24 11:05 Vital Signs Temperature 97.5 F L 04/08/24 11:05 Pulse Rate 99 04/08/24 11:05 Respiratory Rate 20 04/08/24 11:05 Blood Pressure 163/90 H 04/08/24 11:05 Pulse Oximetry 97 04/08/24 11:05 Oxygen Delivery Method Room Air 04/08/24 11:05 Temperature 97.5 F L 04/08/24 11:05 Pulse Rate 99 04/08/24 11:05 Respiratory Rate 20 04/08/24 11:05 Blood Pressure 163/90 H 04/08/24 11:05 Pulse Oximetry 97 04/08/24 11:05 Oxygen Delivery Method Room Air 04/08/24 11:05 Medical Decision Making Lab Data Lab results reviewed: Yes I reviewed the patient's lab results Labs: Lab Results 04/08/24 04/08/24 04/08/24 Range/Units 11:25 11:50 12:30 WBC 9.11 (4.50-11.00) K/uL RBC 4.23 (4.00-5.20) m/uL Hgb 14.0 (12.0-16.0) gm/dL Hct 42.8 (33.0-51.0) % MCV 101 H (80-100) fL MCH 33 (26-34) pg MCHC 33 (32-36) gm/dL RDW Coeff of Alejandro 12.5 (11.5-15.5) % Plt Count 220 (140-440) K/uL Neut % (Auto) 67.2 (42.0-72.0) % Lymph % (Auto) 21.4 (20-44) % Douglas % (Auto) 9.3 (0.0-11.0) % Eos % (Auto) 1.9 (0.0-7.0) % Baso % (Auto) 0.1 (0.0-3.0) % Neut # (Auto) 6.12 (1.7-7.0) K/uL Lymph # (Auto) 1.95 (0.90-2.90) K/uL Douglas # (Auto) 0.80 (0.00-0.90) K/UL Eos # (Auto) 0.17 (0.00-0.50) K/uL Baso # (Auto) 0.01 (0.00-0.30) K/uL Abs Immat Gran (auto) 0.01 (0.00-0.30) K/uL Imm/Tot Granulo (auto) 0.1 % D-Dimer Quant (PE/DVT) 2.68 H (0.00-0.50) ug/ml VBG pH 7.388 (7.32-7.43) VBG pCO2 45 (40-50) mmHG VBG pO2 < 30.1 (25-47) mmHG VBG HCO3 27 (21-28) mmol/L Sodium 139 (135-149) mmol/L Potassium 3.6 (3.6-5.1) mmol/L Chloride 108 (96-114) mmol/L Carbon Dioxide 26 (20-32) mmol/L Anion Gap 5 L (7-15) mEq/L BUN 8 (7-30) mg/dL Creatinine 0.5 (0.5-1.5) mg/dL Estimated Creat Clear 50.12 Estimated GFR 106 ml/min Glucose 90 (60-115) mg/dL Calcium 9.3 (8.4-10.6) mg/dL Magnesium 1.7 (1.5-2.6) mg/dL Total Bilirubin 0.7 (0.1-1.5) mg/dL Direct Bilirubin 0.3 (0.0-0.5) mg/dL AST 35 (12-35) U/L ALT 17 (4-35) U/L Alkaline Phosphatase 78 (40-150) U/L Troponin I < 0.01 L (0.01-0.04) ng/mL C-Reactive Protein 0.6 (0.5-1.0) mg/dL NT-Pro-B Natriuret Pep 95 pg/mL Total Protein 7.6 (6.0-8.3) g/dL Albumin 4.6 (3.3-5.0) g/dL Lipase 107 (23-300) U/L Urine Color Yellow (Yellow) Urine Appearance Clear (Clear) Urine pH 7.0 (5.0-8.5) Ur Specific Chester 1.015 (1.000-1.030) Urine Protein Negative (Negative) Urine Glucose (UA) Negative (Negative) Urine Ketones Negative (Negative) Urine Blood Negative (Negative) Urine Nitrite Negative (Negative) Urine Bilirubin Negative (Negative) Urine Urobilinogen 0.2 (0.2-1.0) Ur Leukocyte Esterase Negative (Negative) Urine RBC 0-2 (0-2) Urine WBC 0-2 (0-5) Ur Squamous Epith Cells None (None-Few) Urine Bacteria None (None) POC Creatinine 0.5 L (0.6-1.3) mg/dl Imaging Data CT Chest/Ab/Pelvis: Attestation: I have reviewed the pertinent imaging results. Radiologist's impression: Patient: EVARISTO TATE Facility:?[facility] Patient ID:?[id number] Site Patient ID:?[id number]. Site :?[id number] Study:?CT-Chest Angio W/ 95CC ISOVUE-370 PE PROTOCOL-04/08/2024 12:49:08 PM Ordering Physician:Jose Antonio Mendez Final Report: Indication: LEFT CP, PLEURITIC SYMPTOMS, SOB Technique: CTA chest, pulmonary embolism protocol, utilizing 95 mL Isovue 370 Comparison: None Findings: No thyroid nodules. No thoracic lymphadenopathy. The heart is normal in size. No pericardial effusion. Coronary artery calcifications. The thoracic aorta and pulmonary artery are normal in caliber. No pulmonary embolism. No focal airspace consolidation, pleural effusion, or pneumothorax. Trace centrilobular emphysematous changes in the bilateral lung apices. No suspicious pulmonary nodules or masses. There are a few sub 4 millimeter, sub pleural pulmonary nodules bilaterally, likely benign. The airways are clear. The soft tissues are unremarkable. There is no acute fracture or malalignment. Degenerative changes of the right shoulder and multilevel degenerative changes throughout the spine. No suspicious osseous lesions. Please see dedicated CT abdomen/pelvis for description of abdominopelvic findings. Impression: 1. No CT evidence of acute process involving the thorax; specifically, no pulmonary embolism. 2. There are a few tiny subpleural pulmonary nodules, likely benign. If patient is at high risk for developing lung malignancy recommend repeat CT chest in 1 year; otherwise, no routine follow-up imaging is needed. Please note that all CT scans at this facility use dose modulation, iterative reconstruction, and/or weight-based dosing when appropriate to reduce radiation dose to as low as reasonably achievable. Dictated by Suresh Sheppard MD @ 04/08/2024 1:01:45 PM (Electronic Signature) Patient: EVARISTO TATE Facility:?[facility] Patient ID:?[id number] Site Patient ID:?[id number]. Site :?1960 Study:?CT-Abdomen/Pelvis W/ 95CC ISOVUE 370-04/08/2024 12:49:24 PM Ordering Physician:Jose Antonio Mendez Final Report: Indication: UPPER ABD DISCOMFORT / BLOATING / GAS, 45LB WEIGHT LOSS Technique: CT abdomen/pelvis with IV contrast, 95 mL Isovue 370 Comparison: CT abdomen/pelvis on July 18, 2011 Findings: Please see dedicated CTA chest for description of thoracic findings. The liver, gallbladder and biliary system, spleen, pancreas, and bilateral adrenal glands are unremarkable. The kidneys, ureters, and bladder are within normal limits in appearance. Tiny nonobstructing 1 millimeter stone at the lower pole of the left kidney (series number 3, image 62). Postsurgical changes of hysterectomy. No suspicious adnexal lesions. There is some smooth circumferential wall thickening of the distal gastric antru m (series number 2, image 55-62), may be secondary to gastritis in the appropriate clinical context versus normal anatomic variation. Otherwise, no CT evidence of bowel obstruction or inflammation. Colonic diverticulosis without CT evidence of acute diverticulitis. Colocolonic anastomosis of the sigmoid colon, grossly unchanged in appearance compared to prior exam. No free fluid or free air. No abscess. No abdominopelvic lymphadenopathy. No abdominal aortic aneurysm. Mild to moderate calcified and noncalcified atherosclerosis of the abdominal aorta. Soft tissue/musculoskeletal: No acute fracture or malalignment. Multilevel degenerative changes throughout the spine. No suspicious osseous lesions. Impression: 1. There is some smooth circumferential wall thickening of the distal gastric a ntrum (series number 2, image 55-62), similar in appearance compared to prior examination; may be secondary to gastritis in the appropriate clinical context versus normal anatomic variation. 2. Otherwise, no CT evidence of an acute process involving the abdomen or pelvis. 3. No abdominopelvic lymphadenopathy. Please note that all CT scans at this facility use dose modulation, iterative reconstruction, and/or weight-based dosing when appropriate to reduce radiation dose to as low as reasonably achievable. Dictated by Suresh Sheppard MD @ 04/08/2024 1:12:02 PM (Electronic Signature) ECG Data Attestation: I personally reviewed and interpreted this ECG as follows: (Normal sinus rhythm, 76 beats per minute. No evidence of any ischemia or infarct.) Prior ECG tracings: not available for review Discharge Plan Discharge Clinical Impression: Chest pain due to GERD Patient Disposition: Home, Self-Care Condition: Stable Instructions: GERD (Gastroesophageal Reflux Disease) (ED) Additional Instructions: Recommend omeprazole daily until further advised. Need to schedule follow-up in clinic with your primary provider within the next 1-2 weeks. An order has been placed for upper endoscopy which you do need. It is very important to follow through and insure that they do not see any abnormality within the stomach itself, biopsies may need to be obtained during the endoscopy. You also have incidental small pulmonary nodules which will require a 1 year follow-up, this can be scheduled outpatient through your primary. Activity Level: Activity as Tolerated Prescriptions: New omeprazole 40 mg capsule,delayed release(DR/EC) 40 mg PO DAILY Qty: 30 0RF No Action prednisone 10 mg tablet 10 mg PO DIRECTED Qty: 30 0RF Rx Instructions: Take four (4) tablets by mouth on days 1-3. Take three (3) tablets by mouth on days 4-6. Take two (2) tablets by mouth on days 7-9. Take one (1) tablet by mouth on days 10-12. methocarbamol 500 mg tablet 500 - 750 mg PO QHS Qty: 10 0RF Follow Up/Referrals: Mirza Brown MD [Primary Care Provider] - Stand Alone Forms: [employer]ighters Info Instructions
--- NOTE | 2024-04-08 11:22 | CRLHL7_ITS ---
For Patients: As a result of the Century Cures Act, medical imaging exams and procedure reports are released immediately into your electronic medical record. You may view this report before your referring provider. If you have questions, please contact your health care provider. Indication: UPPER ABD DISCOMFORT / BLOATING / GAS, 45LB WEIGHT LOSS Technique: CT abdomen/pelvis with IV contrast, 95 mL Isovue 370 Comparison: CT abdomen/pelvis on July 18, 2011 Findings: Please see dedicated CTA chest for description of thoracic findings. The liver, gallbladder and biliary system, spleen, pancreas, and bilateral adrenal glands are unremarkable. The kidneys, ureters, and bladder are within normal limits in appearance. Tiny nonobstructing 1 millimeter stone at the lower pole of the left kidney (series number 3, image 62). Postsurgical changes of hysterectomy. No suspicious adnexal lesions. There is some smooth circumferential wall thickening of the distal gastric antrum (series number 2, image 55-62), may be secondary to gastritis in the appropriate clinical context versus normal anatomic variation. Otherwise, no CT evidence of bowel obstruction or inflammation. Colonic diverticulosis without CT evidence of acute diverticulitis. Colocolonic anastomosis of the sigmoid colon, grossly unchanged in appearance compared to prior exam. No free fluid or free air. No abscess. No abdominopelvic lymphadenopathy. No abdominal aortic aneurysm. Mild to moderate calcified and noncalcified atherosclerosis of the abdominal aorta. Soft tissue/musculoskeletal: No acute fracture or malalignment. Multilevel degenerative changes throughout the spine. No suspicious osseous lesions. Impression: 1. There is some smooth circumferential wall thickening of the distal gastric antrum (series number 2, image 55-62), similar in appearance compared to prior examination; may be secondary to gastritis in the appropriate clinical context versus normal anatomic variation. 2. Otherwise, no CT evidence of an acute process involving the abdomen or pelvis. 3. No abdominopelvic lymphadenopathy. Please note that all CT scans at this facility use dose modulation, iterative reconstruction, and/or weight-based dosing when appropriate to reduce radiation dose to as low as reasonably achievable. Dictated by Suresh Sheppard MD @ 04/08/2024 1:12:02 PM (Electronically Signed)
--- NOTE | 2024-04-08 11:23 | CRLHL7_ITS ---
For Patients: As a result of the Century Cures Act, medical imaging exams and procedure reports are released immediately into your electronic medical record. You may view this report before your referring provider. If you have questions, please contact your health care provider. Indication: LEFT CP, PLEURITIC SYMPTOMS, SOB Technique: CTA chest, pulmonary embolism protocol, utilizing 95 mL Isovue 370 Comparison: None Findings: No thyroid nodules. No thoracic lymphadenopathy. The heart is normal in size. No pericardial effusion. Coronary artery calcifications. The thoracic aorta and pulmonary artery are normal in caliber. No pulmonary embolism. No focal airspace consolidation, pleural effusion, or pneumothorax. Trace centrilobular emphysematous changes in the bilateral lung apices. No suspicious pulmonary nodules or masses. There are a few sub 4 millimeter, sub pleural pulmonary nodules bilaterally, likely benign. The airways are clear. The soft tissues are unremarkable. There is no acute fracture or malalignment. Degenerative changes of the right shoulder and multilevel degenerative changes throughout the spine. No suspicious osseous lesions. Please see dedicated CT abdomen/pelvis for description of abdominopelvic findings. Impression: 1. No CT evidence of acute process involving the thorax; specifically, no pulmonary embolism. 2. There are a few tiny subpleural pulmonary nodules, likely benign. If patient is at high risk for developing lung malignancy recommend repeat CT chest in 1 year; otherwise, no routine follow-up imaging is needed. Please note that all CT scans at this facility use dose modulation, iterative reconstruction, and/or weight-based dosing when appropriate to reduce radiation dose to as low as reasonably achievable. Dictated by Suresh Sheppard MD @ 04/08/2024 1:01:45 PM (Electronically Signed)
--- OUTSIDE RECORDS SUMMARY | 2024-04-08 11:30 | XMS_ITS | Clinical Summary ---
Author Organization [facility] Address [address], [place] [address] Care Team Providers Care Senior Financial Reporting Analyst Name Role Phone Needs Pcp, Assignment Primary Care Provider [phone] Source Comments You are receiving this document as you are listed as the primary care provider,follow-up provider, or the patient has been referred to you for consultation.This is in compliance with the Medicare andMedicaid EHR Incentive Program,which states Providers who transition their patient to another setting of careor provider of care or refers their patient to another provider of care shouldprovide summary care record for each transition of care or referral. [employer] Allergies Active Allergy Reactions Criticality Noted Date Comments Meperidine Nausea And Vomiting 09/15/2017 Medications Medication Sig Dispensed Refills Start Date End Date Status naproxen (NAPROSYN) 500 MG tablet TK 1 T PO BID WF PRN P 1 08/08/2017 Active gabapentin (NEURONTIN) 100 MG capsule Take 1-3 Caps by mouth daily at bedtime. 90 Cap 3 09/15/2017 Active Active Problems Problem Noted Date Diagnosed Date Carpal tunnel syndrome of right wrist 09/15/2017 Abnormal immunological finding in serum 09/15/19 18 Fibromyalgia 09/15/2017 Lateral epicondylitis of left elbow 09/15/2017 Ulnar neuropathy of left upper extremity 018 Tobacco abuse 09/15/2017 Immunizations Name Administration Dates Next Due Influenza IIV4 (Quadrivalent) 0.5mL (07437) 09/01 Social History Tobacco Use Types Packs/Day Years Used Date Smoking Tobacco: Every Day Cigarettes Smokeless Tobacco: Never Sex and Gender Information Value Date Recorded Sex Assigned at Not on file Gender Identity Not on file Sexual Orientation Not on file Last Filed Vital Signs Vital Sign Reading Time Taken Comments Blood Pressure 176/86 09/15/2017 1:28 PM [facility]OTH COVERER Pulse 103 09/15/2017 1:28 PM [facility]ER Temperature - - Respiratory Rate - - Oxygen Saturation - - Inhaled Oxygen Concentration - - Weight 73.1 kg (161 lb 1.6 oz) 09/15/2017 1:28 P M [facility] COVERER Height - - Body Mass Index - - Plan of Treatment Health Maintenance Due Date Last Done Comments Cervical Cancer Screening Due 1960 Colon Cancer Screening Plan Due 1960 Mammogram 1960 HIV Screening (Preventive Services) 1978 Adult Preventive Visit 1980 DTaP/Tdap/Td (1 - Tdap) 1981 Cholesterol 2007 Zoster/Shingles (1 of 2) 2012 COVID-19 Vaccine (2022-2 4 season) 2023 Influenza (#1) 2024 09/15/2017 Hep C Screening (Preventive Services) Completed 09/15/2017 HepA Aged Out No longer eligi ble based on patient's age to complete this topic HepB Aged Out No longer eligi ble based on patient's age to complete this topic Hib Aged Out No longer eligi ble based on patient's age to complete this topic IPV (Polio) Aged Out No longer eligi ble based on patient's age to complete this topic MCV4 Aged Out No longer eligi ble based on patient's age to complete this topic Pneumococcal Aged Out No longer eligi ble based on patient's age to complete this topic Procedures Procedure Name Priority Date/Time Associated Diagnosis Comments HEPATITIS C ANTIBODY, WITH REFLEX Routine 09/15/2017 2:23 PM CLOTH COVERER Abnormal immunological finding in serum from Last 3 Months or Most Recently Relevant to Health Maintenance Results * [facility] - Hepatitis C Virus Rosario with Reflex In-House (09/15/2017 2:23 PM CLOTH COVERER) Hepatitis C Antibody Nonreactive Nonreactive PN SOFT 09/15/2017 2:23 PM CLOTH COVERER 09/15/2017 6:09 PM CLOTH COVERER Narrative PN SOFT - 09/15/2017 7:26 PM [facility]OTH C[facility]ER Performed at [address] [place] [address] CLIA number [id number] Raphael Merchant MD LAB_1 PN SOFT [address] [place] [address] from Last 3 Months or Most Recently Relevant to Health Maintenance Care Teams Senior Financial Reporting Analyst Relationship Specialty Start Date End Date Needs Pcp, [place] [address] PCP - General 12/16/17
--- OUTSIDE RECORDS SUMMARY | 2024-04-08 11:30 | XMS_ITS | Clinical Summary ---
Author Organization [facility] Address [address] [place] [id number] Care Team Providers Care Fitter Mechanic Name Role Phone Mirza Brown MD Primary Care Provider [phone] Allergies Active Allergy Reactions Criticality Noted Date Comments Meperidine Hives Medium 08/29/2022 Medications Medication Sig Dispensed Refills Start Date End Date Status meloxicam (MOBIC) 15 MG tablet Take 15 mg by mouth daily Active ibuprofen (ADVIL/MOTRIN) 200 MG tabletIndications:Pa in Take 200 mg by mouth every 4 hours as needed for pain Active oxyCODONE (ROXICODONE) 5 MG tabletIndications:An al fistula Take 1 tablet (5 mg) by mouth every 4 hours as needed for moderate to severe pain 10 tablet 08/30/2022 Active Social History Tobacco Use Types Packs/Day Years Used Date Smoking Tobacco: Every Day Cigarettes Smokeless Tobacco: Never Tobacco Cessation:Ready to Q uit: Not Asked; Counseling Given: Not Answered Alcohol Use Standard Drinks/Week Comments Yes 0 (1 standard drink = 0.6 oz pur e alcohol) socially Adolescent Education Answer Date Record ed Getting School Help Needed Not on file 06/15 Sex and Gender Information Value Date Recorded Sex Assigned at Not on file Gender Identity Not on file Sexual Orientation Not on file Last Filed Vital Signs Vital Sign Reading Time Taken Comments Blood Pressure 161/89 08/30/2022 7:15 PM IT SOFTWARE ENGINEER Pulse 75 08/30/2022 7:14 PM IT SOFTWARE ENGINEER Temperature 36.4 ??C (97.5 ??F) 08/30/2022 7:14 PM CS T Respiratory Rate 16 08/30/2022 7:15 PM IT SOFTWARE ENGINEER Oxygen Saturation 99% 08/30/2022 7:15 PM IT SOFTWARE ENGINEER Inhaled Oxygen Concentration - - Weight 56.7 kg (125 lb) 08/30/2022 2:12 PM IT SOFTWARE ENGINEER Height 160 cm (5' 3) 08/30/2022 2:12 PM IT SOFTWARE ENGINEER Body Mass Index 22.14 08/30/2022 2:12 PM IT SOFTWARE ENGINEER Plan of Treatment Health Maintenance Due Date Last Done Comments ADVANCE CARE PLANNING 1960 ANNUAL REVIEW OF HM ORDERS [address] CT COLONOGRAPHY 1962 FIT 1962 FLEX SIG 1962 GLUCOSE 1962 MAMMO SCREENING 1962 YEARLY PREVENTIVE VISIT 1962 sDNA (Cologuard) 1962 HIV SCREENING 1977 HEPATITIS C SCREENING 1980 PAP 1983 LIPID 2002 LUNG CANCER SCREENING 2012 ZOSTER IMMUNIZATION (1 of 2) 2012 RSV VACCINE ( & 60+) (1 - 1-dose 60+ series) 2022 COVID-19 Vaccine (3 - 2022- season) 2023 01/20/2021, 12/23/2020 Pneumococcal Vaccine: Pediatrics (0 to 5 Years) and At-Risk Patients (6 to 64 Years) (2 of 2 - PCV) 05/09/2023 05/09/2022 PHQ-2 (once per calendar year) 2023 INFLUENZA VACCINE (#1) 2024 9, 09/15/2017, 08/15/2016, Additional history exists DTAP/TDAP/TD IMMUNIZATION (3 - Td or Tdap) 05/09/2032 05/09/2022, 04/16/2011 COLONOSCOPY 08/30/2032 08/30/2022, 08/30/2022 COLORECTAL CANCER SCREENING 08/30/2032 HPV IMMUNIZATION Aged Out No longer e ligible based on patient's age to complete this topic IPV IMMUNIZATION Aged Out No longer e ligible based on patient's age to complete this topic MENINGITIS IMMUNIZATION Aged Out No l onger eligible based on patient's age to complete this topic RSV MONOCLONAL ANTIBODY Aged Out No l onger eligible based on patient's age to complete this topic Procedures Procedure Name Priority Date/Time Associated Diagnosis Comments COLONOSCOPY Routine 08/30/2022 4:05 PM IT SOFTWARE ENGINEER from Last 3 Months or Most Recently Relevant to Health Maintenance Results * COLONOSCOPY (08/30/2022 4:05 PM IT SOFTWARE ENGINEER) COLONOSCOPY [facility] Patient Name: Rema Barney ? Procedure Date: 08/30/2022 4:05 PM ? Date of : 1960 ?Admit Type: Outpatient Age: 62 ? Gender: Female Attending MD: ANGIE RODRIGUEZ MD Total Sedation Time: See anesthesia report. Instrument Name: 254 - Pediatric Colonoscope Procedure: ?Colonoscopy Indications: ?Screening for colorectal malignant neoplasm Providers: ?ANGIE RODRIGUEZ MD (Doctor) Referring MD: ? Medicines: ?Monitored Anesthesia Care Complications: ?No immediate complications. Procedure: ?Pre-Anesthesia Assessment: ?- Prior to the procedure, a History and Physical ?was performed, and patient medications and ?allergies were reviewed. The patient is competent. ?The risks and benefits of the procedure and the ?sedation options and risks were discussed with the ?patient. All questions were answered and informed ?consent was obtained. Patient identification and ?proposed procedure were verified by the physician ?and the nurse in the procedure room. Mental Status ?Examination: alert and oriented. Airway ?Examination: normal oropharyngeal airway and neck ?mobility. Respiratory Examination: clear to ?auscultation. CV Examination: normal. Prophylactic ?Antibiotics: The patient does not require ?prophylactic antibiotics. Prior Anticoagulants: The ?patient has taken no anticoagulant or antiplatelet ?agents. ASA Grade Assessment: II - A patient with ?mild systemic disease. After reviewing the risks ?and benefits, the patient was deemed in ?satisfactory condition to undergo the procedure. ?The anesthesia plan was to use moderate sedation / ?analgesia (conscious sedation). Immediately prior ?to administration of medications, the patient was ?re-assessed for adequacy to receive sedatives. The ?heart rate, respiratory rate, oxygen saturations, ?blood pressure, adequacy of pulmonary ventilation, ?and response to care were monitored throughout the ?procedure. The physical status of the patient was ?re-assessed after the procedure. ?After obtaining informed consent, the colonoscope ?was passed under direct vision. Throughout the ?procedure, the patient's blood pressure, pulse, and ?oxygen saturations were monitored continuously. The ?[email or web address] Pediatric Colonoscope Model #[id number]-WY712W, ?Endora #254, SN # [id number] was introduced through ?the anus and advanced to 5 cm into the ileum. The ?colonoscopy was performed with ease. The patient ?tolerated the procedure well. The quality of the ?bowel preparation was adequate to identify polyps. ?The terminal ileum, ileocecal valve, appendiceal ?orifice, and rectum were photographed. ? Findings: ? The perianal and digital rectal examinations were normal other than a ? scare adn sinus on the right lateral gluteal region. Pertinent negatives ? include normal sphincter tone and no palpable rectal lesions. ? The terminal ileum appeared normal. ? A 6 mm polyp was found in the sigmoid colon. The polyp was ? semi-pedunculated. The polyp was removed with a hot snare. Resection and ? retrieval were complete. Estimated blood loss: none. ? Many small and large-mouthed diverticula were found in the sigmoid ? colon, descending colon, transverse colon and ascending colon. ? The exam was otherwise without abnormality. ? The retroflexed view of the distal rectum and anal verge was normal and ? showed no anal or rectal abnormalities. ? Impression: ? - The examined portion of the ileum was normal. ?- One 6 mm polyp in the sigmoid colon, removed with ?a hot snare. Resected and retrieved. ?- Diverticulosis in the sigmoid colon, in the ?descending colon, in the transverse colon and in ?the ascending colon. ?- The examination was otherwise normal. ?- The distal rectum and anal verge are normal on ?retroflexion view. Recommendation: ? - Repeat colonoscopy in 5-10 years for surveillance ?based on pathology results. ? Procedure Code(s): ? --- Professional --- ? 26644, Colonoscopy, flexible; with removal of tumor(s), polyp(s), or ? other lesion(s) by snare technique Diagnosis Code(s): ? --- Professional --- ? Z12.11, Encounter for screening for malignant neoplasm of colon ? K63.5, Polyp of colon ? K57.30, Diverticulosis of large intestine without perforation or abscess ? without bleeding CPT copyright 2020 [employer]. All rights reserved. The codes documented in this report are preliminary and upon panelboard assembler review may be revised to meet current compliance requirements. ____ ANGIE RODRIGUEZ MD 08/30/2022 5:58:27 PM I was physically present for the entire viewing portion of the exam. ANGIE RODRIGUEZ MD Number of Addenda: 0 Note Initiated On: 08/30/2022 4:05 PM MRN: [id number] Procedure Date: ? 08/30/2022 4:05:43 PM Scope Withdrawal Time: 0 hours 21 minutes 13 seconds Total Procedure Duration: 0 hours 33 minutes 18 seconds Estimated Blood Loss: ? Scope In: 4:34:50 PM Scope Out: 5:08:08 PM RADIOLOGY RESULTS 08/30/2022 4:05 PM IT SOFTWARE ENGINEER Angie Rodriguez MD PROCEDURES RADIOLOGY RESULTS from Last 3 Months or Most Recently Relevant to Health Maintenance Care Teams Fitter Mechanic Relationship Specialty Start Date End Date Mirza Brown MD PCP - General Family Medicine 08/30/22
--- OUTSIDE RECORDS SUMMARY | 2024-04-08 11:30 | XMS_ITS | Referral Summary ---
Author Organization [facility] Address [address] [place] [address] Care Team Providers Care Silk Blocker Name Role Phone Mirza Brown MD Primary Care Provider [phone] Allergies Active Allergy Reactions Criticality Noted Date [...] Comments Blood Pressure 161/89 08/30/2022 7:15 PM INTERNATIONAL PROJECT MANAGER Pulse 75 08/30/2022 7:14 PM INTERNATIONAL PROJECT MANAGER Temperature 36.4 ??C (97.5 ??F) 08/30/2022 7:14 PM CS T Respiratory Rate 16 08/30/2022 7:15 PM INTERNATIONAL PROJECT MANAGER Oxygen Saturation 99% 08/30/2022 7:15 PM INTERNATIONAL PROJECT MANAGER Inhaled Oxygen Concentration - - Weight 56.7 kg (125 lb) 08/30/2022 2:12 PM INTERNATIONAL PROJECT MANAGER Height 160 cm (5' 3) 08/30/2022 2:12 PM INTERNATIONAL PROJECT MANAGER Body Mass Index 22.14 08/30/2022 2:12 PM INTERNATIONAL PROJECT MANAGER Plan of Treatment Not on file Procedures Procedure Name Priority Date/Time Associated Diagnosis Comments COLONOSCOPY Routine 08/30/2022 4:05 PM INTERNATIONAL PROJECT MANAGER from Last 3 Months or Most Recently Relevant to Health Maintenance Results * COLONOSCOPY (08/30/2022 4:05 PM INTERNATIONAL PROJECT MANAGER) [facility] COLONOSCOPY [facility] Patient Name: Rema Barney ? Procedure [...] and ?oxygen saturations were monitored continuously. The ?[employer] Pediatric Colonoscope Model #PCF-VF350D, ?Endora #254, SN # [id number] was introduced through ?the anus and advanced [...] Procedure Code(s): ? --- Professional --- ? 13504, Colonoscopy, flexible; with removal of tumor(s), polyp(s), or ? other lesion(s) by snare technique Diagnosis Code(s): ? --- Professional --- ? Z12.11, Encounter for screening for malignant neoplasm of colon ? K63.5, Polyp of colon ? K57.30, Diverticulosis of large intestine without perforation or abscess ? without bleeding CPT copyright 2020 [employer]. All rights reserved. The codes documented in this report are preliminary and upon shoulder pad molder review may be revised to meet current compliance requirements. ____ ANGIE RODRIGUEZ MD 08/30/2022 5:58:27 PM I was physically present for the entire viewing portion of the exam. ANGIE RODRIGUEZ MD Number of Addenda: 0 Note Initiated On: 08/30/2022 4:05 PM MRN: ?[id number] Procedure Date: ? 08/30/2022 4:05:43 PM Scope Withdrawal Time: 0 hours 21 minutes 13 seconds Total Procedure Duration: 0 hours 33 minutes 18 seconds Estimated Blood Loss: ? Scope In: 4:34:50 PM Scope Out: 5:08:08 PM RADIOLOGY RESULTS 08/30/2022 4:05 PM INTERNATIONAL PROJECT MANAGER Angie Rodriguez MD PROCEDURES RADIOLOGY RESULTS from Last 3 Months or Most Recently Relevant to Health Maintenance Care Teams Silk Blocker Relationship Specialty Start Date End Date Mirza Brown MD PCP - General Family Medicine 08/30/22
[2024-04-08 11:58] LABS: HCO3 VBG 27 mmol/L (21-28); PCO2 VBG 45 mmHG (40-50); PO2 VBG < 30.1 mmHG (25-47); pH VBG 7.388 (7.32-7.43)
[2024-04-08 12:02] LABS: Creatinine, Point-of-Care* 0.5 mg/dl (0.6-1.3)
[2024-04-08 12:04] LABS: Basophils Absolute Auto 0.01 K/uL (0.00-0.30); Basophils Percent Auto 0.1 % (0.0-3.0); Eosinophils Absolute Auto 0.17 K/uL (0.00-0.50); Eosinophils Percent Auto 1.9 % (0.0-7.0); Hematocrit 42.8 % (33.0-51.0); Immature Granulocytes Abs Auto 0.01 K/uL (0.00-0.30); Immature Granulocytes Pct Auto 0.1 %; Lymphocytes Absolute Auto 1.95 K/uL (0.90-2.90); Lymphocytes Percent Auto 21.4 % (20-44); Mean Corpuscular HGB Conc 33 gm/dL (32-36); Mean Corpuscular Hemoglobin 33 pg (26-34); Mean Corpuscular Volume 101 fL (80-100); Monocytes Percent Auto 9.3 % (0.0-11.0); Neutrophils Absolute Auto 6.12 K/uL (1.7-7.0); Neutrophils Percent Auto 67.2 % (42.0-72.0); Platelet Count* 220 K/uL (140-440); RDW Coefficient of Variation % 12.5 % (11.5-15.5); Red Blood Count 4.23 m/uL (4.00-5.20); White Blood Count* 9.11 K/uL (4.50-11.00)
[2024-04-08 12:08] LABS: Slide Review Reflex Yes
[2024-04-08 12:13] LABS: Chloride* 108 mmol/L (96-114)
[2024-04-08 12:14] LABS: Albumin* 4.6 g/dL (3.3-5.0); Potassium* 3.6 mmol/L (3.6-5.1); Sodium* 139 mmol/L (135-149)
[2024-04-08 12:16] LABS: Creatinine* 0.5 mg/dL (0.5-1.5); Est. Creatinine Clearance* 50.12; Estimated Glomerular Filt Rate 106 ml/min
[2024-04-08 12:17] LABS: Alanine Aminotransferase* 17 U/L (4-35); Alkaline Phosphatase* 78 U/L (40-150); Anion Gap 5 mEq/L (7-15); Aspartate Amino Transferase* 35 U/L (12-35); Bilirubin Direct* 0.3 mg/dL (0.0-0.5); Bilirubin Total* 0.7 mg/dL (0.1-1.5); Blood Urea Nitrogen* 8 mg/dL (7-30); Calcium* 9.3 mg/dL (8.4-10.6); Carbon Dioxide* 26 mmol/L (20-32); Glucose* 90 mg/dL (60-115); Lipase* 107 U/L (23-300); Total Protein* 7.6 g/dL (6.0-8.3)
[2024-04-08 12:18] LABS: Magnesium* 1.7 mg/dL (1.5-2.6)
[2024-04-08 12:20] LABS: C Reactive Protein* 0.6 mg/dL (0.5-1.0)
[2024-04-08 12:28] LABS: D Dimer Quantitative* 2.68 ug/ml (0.00-0.50)
[2024-04-08 12:40] LABS: Appearance Urine Clear (Clear); Bilirubin Urine Negative (Negative); Blood Urine Negative (Negative); Color Urine Yellow (Yellow); Glucose Urine Negative (Negative); Ketones Urine Negative (Negative); Leukocyte Esterase Urine Negative (Negative); Nitrite Urine Negative (Negative); Protein Urine Negative (Negative); Specific Gravity Urine 1.015 (1.000-1.030); Urobilinogen Urine 0.2 (0.2-1.0)
[2024-04-08 12:44] LABS: NT Pro B Type NatriureticPept* 95 pg/mL; Troponin I* < 0.01 ng/mL (0.01-0.04)
[2024-04-08 12:58] LABS: RBC Urine 0-2 (0-2); WBC Urine 0-2 (0-5)
[2024-04-09 01:18] LABS: Slide Review Acceptable Review (Acceptable)
== END 2024-04-08 14:34 | disposition home or self-care (01) ==
PROVIDERS: Emergency Provider Family Medicine; PCP Family Medicine
DX: R07.9 Chest pain, unspecified (principal); K21.9 Gastro-esophageal reflux disease without esophagitis
CPT/HCPCS: 36415; 71275; 74177; 80053; 81001; 82248; 82565; 82803; 83690; 83735; 83880; 84484; 85025; 85379; 86140; 93005; 94761; 99285; Q9967

== ENCOUNTER 2025-01-12 11:27 | Outpatient (CLI) | payer OTHER, SELFPAY ==
[2025-01-12 11:34] LABS: Appearance Urine Clear (Clear); Bilirubin Urine Negative (Negative); Blood Urine Negative (Negative); Color Urine Yellow (Yellow); Glucose Urine Negative (Negative); Ketones Urine Negative (Negative); Leukocyte Esterase Urine Negative (Negative); Nitrite Urine Negative (Negative); Protein Urine 1+ (Negative); Specific Gravity Urine 1.025 (1.000-1.030); Urobilinogen Urine 0.2 (0.2-1.0); pH Urine 6.5 (5.0-8.5)
[2025-01-12 11:42] LABS: Bacteria Urine Moderate; Hyaline Casts Urine Few (None-Few); RBC Urine 0-2 (0-2); Squamous Epithelial Cell Urine Few (None-Few); WBC Urine 0-2 (0-5)
== END 2025-01-12 11:28 | disposition home or self-care (01) ==
PROVIDERS: PCP Family Medicine; Visit Provider Obstetrics & Gynecology
DX: R10.2 Pelvic and perineal pain (principal); R82.90 Unspecified abnormal findings in urine; Z13.1 Encounter for screening for diabetes mellitus
CPT/HCPCS: 81001; 81003; 82947; 87086

== ENCOUNTER 2025-01-12 12:55 | Outpatient (CLI) | payer OTHER, SELFPAY ==
--- NOTE | 2025-01-12 13:00 | CRLHL7_ITS ---
For Patients: As a result of the Century Cures Act, medical imaging exams and procedure reports are released immediately into your electronic medical record. You may view this report before your referring provider. If you have questions, please contact your health care provider. INDICATION: Lumbar radiculopathy. TECHNIQUE: Multisequence multiplanar MRI of the lumbar spine without the use of intravenous contrast. COMPARISON: Correlated with lumbar spine radiographs dated 11/23/2019. FINDINGS: Leftward lumbar curvature with apex at L4. Minimal stepwise degenerative retrolisthesis from L1-L3. Minimal depression of the L5 superior endplate with adjacent edema. No T1 hypointense infiltrative lesion is identified. There is advanced multilevel disc desiccation and height loss with endplate edema at T12-L1 and L1-L2. The conus medullaris terminates normally at the L1-L2 level. T12-L1: Shallow symmetric disc bulge. Mild facet joint arthrosis. No significant spinal canal or neural foraminal stenosis. L1-L2: Symmetric disc bulge. Mild facet joint arthrosis. Mild-moderate spinal canal stenosis and bilateral neural foraminal narrowing. L2-L3: Symmetric disc bulge. Mild facet joint arthrosis. Mild spinal canal stenosis and bilateral neural foraminal narrowing. L3-L4: Symmetric disc bulge. Advanced right facet joint arthrosis. Mild spinal canal stenosis, moderate right neural foraminal narrowing, and mild left neural foraminal narrowing. L4-L5: Symmetric disc bulge. Advanced facet joint arthrosis. No significant spinal canal stenosis or left neural foraminal narrowing. Moderate-severe right neural foraminal narrowing. L5-S1: Shallow symmetric disc bulge. Mild facet joint arthrosis. No significant spinal canal or neural foraminal stenosis. IMPRESSION: 1. Leftward lumbar curvature and minimal stepwise retrolisthesis from L1-L3. 2. Minimal depression of the L5 superior endplate with adjacent edema. Findings may be degenerative in etiology, with minimally displaced recent compression fracture can not be entirely excluded. 3. Advanced multilevel disc height loss with endplate edema at T12-L1 and L1-L2 favored to reflect Modic type 1 degenerative endplate signal. 4. At L1-L2, mild-moderate spinal canal stenosis and bilateral neural foraminal narrowing. 5. At L2-L3, mild spinal canal stenosis. 6. At L3-L4, mild spinal canal stenosis and moderate right neural foraminal narrowing. 7. At L4-L5, moderate-severe right neural foraminal narrowing. Dictated by Devang Zayas MD @ 01/13/2025 10:44:05 AM (Electronically Signed)
== END 2025-01-12 12:56 | disposition home or self-care (01) ==
LOC: MRI 12:56
PROVIDERS: PCP Family Medicine; Visit Provider Family Medicine
DX: M54.16 Radiculopathy, lumbar region (principal); M48.061 Spinal stenosis, lumbar region without neurogenic claudication; M51.26 Other intervertebral disc displacement, lumbar region
CPT/HCPCS: 72148

== ENCOUNTER 2025-01-27 08:00 | Outpatient (CLI) | payer OTHER, SELFPAY ==
--- NOTE | 2025-01-27 08:44 | P.ANES_ITS ---
Anesthesia Charges Start Date/Time Anesthesia Start Date: 01/27/25 Anesthesia Start Time: 08:23 Stop Date/Time Anesthesia Stop Date: 01/27/25 Anesthesia Stop Time: 08:41 Coding CPT Codes CPT Codes: ANES UPR GI NDSC PX NOS - 42448 ([id number]) P3 - PATIENT W/SEVERE SYS DISEASE, QX - PM TECHNICIAN SVC W/ MD MED DIRECTION, QK - AP PROCESSOR 2-4 CNCRNT ANES PROC
--- NOTE | 2025-01-27 08:44 | W.ANESCHARGE ---
Anesthesia Charges Start Date/Time Anesthesia Start Date: 01/27/25 Anesthesia Start Time: 08:23 Stop Date/Time Anesthesia Stop Date: 01/27/25 Anesthesia Stop Time: 08:41 Coding CPT Codes CPT Codes: ANES UPR GI NDSC PX NOS - 13714 ([id number]) P3 - PATIENT W/SEVERE SYS DISEASE, QX - TRADE MARK EXAMINER SVC W/ MD MED DIRECTION, QK - HOSPITAL RECRUITER 2-4 CNCRNT ANES PROC
--- NOTE | 2025-01-27 09:09 | P.ANES_ITS ---
Anesthesia Charges Start Date/Time Anesthesia Start Date: 01/27/25 Anesthesia Start Time: 08:23 Stop Date/Time Anesthesia Stop Date: 01/27/25 Anesthesia Stop Time: 08:41 Coding CPT Codes CPT Codes: ANES UPR GI NDSC PX NOS - 08253 ([id number]) QK - TRUMPET TEACHER 2-4 CNCRNT ANES PROC, QX - SENIOR SOLUTIONS WORKFLOW CONSULTANT SVC W/ MD MED DIRECTION, P3 - PATIENT W/SEVERE SYS DISEASE
--- NOTE | 2025-01-27 09:09 | W.ANESCHARGE ---
Anesthesia Charges Start Date/Time Anesthesia Start Date: 01/27/25 Anesthesia Start Time: 08:23 Stop Date/Time Anesthesia Stop Date: 01/27/25 Anesthesia Stop Time: 08:41 Coding CPT Codes CPT Codes: ANES UPR GI NDSC PX NOS - 84427 ([id number]) QK - DISTRICT ASSOCIATE JUDGE 2-4 CNCRNT ANES PROC, QX - FENDER FINISHER SVC W/ MD MED DIRECTION, P3 - PATIENT W/SEVERE SYS DISEASE
== END 2025-01-27 08:01 | disposition home or self-care (01) ==
LOC: OP CLINIC 08:00
PROVIDERS: PCP Family Medicine; Visit Provider Surgery
DX: K21.9 Gastro-esophageal reflux disease without esophagitis (principal); K44.9 Diaphragmatic hernia without obstruction or gangrene; K29.70 Gastritis, unspecified, without bleeding; D49.0 Neoplasm of unspecified behavior of digestive system
CPT/HCPCS: 00731; 43239; 88305; J2704; J3490

== ENCOUNTER 2025-02-09 14:39 | Outpatient (CLI) | payer OTHER, SELFPAY ==
--- NOTE | 2025-02-09 15:00 | CRLHL7_ITS ---
For Patients: As a result of the Century Cures Act, medical imaging exams and procedure reports are released immediately into your electronic medical record. You may view this report before your referring provider. If you have questions, please contact your health care provider. INDICATION: Gastric mass seen on EGD TECHNIQUE: Volumetric helical scanning of the chest, abdomen and pelvis was performed with 61 cc of Isovue 370 contrast material IV. Coronal and sagittal reconstructions were obtained. COMPARISON: Chest/abdomen/pelvis CT of 04/08/2024 FINDINGS: CHEST: No new or enlarging pulmonary nodule is identified. Several unchanged, benign micronodules are noted. An infiltrate in the right middle lobe is noted. The lungs are otherwise clear. No axillary, mediastinal or hilar adenopathy is apparent. The heart is normal in size. Calcified coronary arterial plaque is again demonstrated. ABDOMEN/PELVIS: On images 136-142, there appears to be a roughly 2.5 cm mass in the gastric fundus. In retrospect, this appears to have been present on the prior examination. This lesion appears unchanged or slightly larger. The bowel is otherwise unremarkable except for colonic diverticulosis and postop change of sigmoid colon resection. No lymphadenopathy is evident. No free fluid is noted. The liver is normal in size, shape and attenuation. The bile ducts are within normal limits. The spleen, adrenal glands and pancreas are negative. The kidneys are unremarkable. Postop changes of hysterectomy are noted. No lytic or blastic bone lesion is identified. IMPRESSION: 1. 2.5 cm gastric fundus mass, unchanged or slightly larger. No metastatic lesion evident. 2. Right middle lobe pneumonia. 3. Coronary artery disease. 4. Post sigmoid colon resection and hysterectomy. Please note that all CT scans at this facility use dose modulation, iterative reconstruction, and/or weight-based dosing when appropriate to reduce radiation dose to as low as reasonably achievable. Dictated by Dameon Dunham MD @ 02/11/2025 1:59:45 PM (Electronically Signed)
[2025-02-09 15:12] LABS: Creatinine* 0.6 mg/dL (0.5-1.5); Estimated Glomerular Filt Rate 101 ml/min
== END 2025-02-09 14:40 | disposition home or self-care (01) ==
LOC: CT 14:42
PROVIDERS: PCP Family Medicine; Visit Provider Surgery
DX: K31.89 Other diseases of stomach and duodenum (principal); R19.00 Intra-abdominal and pelvic swelling, mass and lump, unspecified site; J18.9 Pneumonia, unspecified organism; I25.10 Atherosclerotic heart disease of native coronary artery without angina pectoris
CPT/HCPCS: 36415; 71260; 74177; 82565; Q9967

== ENCOUNTER 2025-02-22 16:47 | Outpatient (CLI) | payer OTHER, SELFPAY ==
--- OUTSIDE RECORDS SUMMARY | 2025-02-22 16:52 | XMS_ITS | Clinical Summary ---
Author Organization [facility] Address [address] [place] [address] Care Team Providers Care Senior Strategy Analyst Name Role Phone Mirza Brown MD Primary Care Provider [phone] Allergies Active Allergy Reactions Criticality Noted Date Comments Meperidine Hives Medium 08/29/2022 Medications meloxicam (MOBIC) 15 MG tablet Take 15 mg by mouth daily Active ibuprofen (ADVIL/MOTRIN) 200 MG tabletIndicatio ns:Pain Take 200 mg by mouth every 4 hours as needed for pain Active oxyCODONE (ROXICODONE) 5 MG tabletIndicatio ns:Anal fistula Take 1 tablet (5 mg) by [...] School Help Needed Not on file 06/15 Comments No Sex and Gender Information Value Date Recorded Sex Assigned at Not on file Legal Sex Female 3:13 AM MASONRY TEACHER Gender Identity Not on file Sexual Orientation Not on file Last Filed Vital Signs Vital Sign Reading Time Taken Comments Blood Pressure 161/89 08/30/2022 7:15 PM MASONRY TEACHER Pulse 75 08/30/2022 7:14 PM MASONRY TEACHER Temperature 36.4 C (97.5 F) 08/30/2022 7:14 PM MASONRY TEACHER Respiratory Rate 16 08/30/2022 7:15 PM MASONRY TEACHER Oxygen Saturation 99% 08/30/2022 7:15 PM MASONRY TEACHER Inhaled Oxygen Concentration - - Weight 56.7 kg (125 lb) 08/30/2022 2:12 PM MASONRY TEACHER Height 160 cm (5' 3) 08/30/2022 2:12 PM MASONRY TEACHER Body Mass Index 22.14 08/30/2022 2:12 PM MASONRY TEACHER Plan of Treatment Health Maintenance Due Date Last Done Comments ADVANCE CARE PLANNING 1960 ANNUAL REVIEW OF HM ORDERS 1962 CT COLONOGRAPHY 1962 DIABETES SCREENING 1962 FIT 1962 FLEX SIG 1962 MAMMO SCREENING 1962 sDNA (Cologuard) 1962 YEARLY PREVENTIVE VISIT 1965 HIV SCREENING 1977 HEPATITIS C SCREENING 1980 PAP 1983 LIPID 2002 LUNG CANCER SCREENING 2012 ZOSTER VACCINE (1 of 2) 2012 PNEUMOCOCCAL VACCINE 50+ YEARS (2 of 2 - PCV) 05/09/2023 05/09/2022 COVID-19 VACCINE (3 - season) 2024 01/20/2021, 12/23/2020 PHQ-2 (once per calendar year) 2024 INFLUENZA VACCINE (Season Ended) 2025 07/19/2019, 09/15/2017, 08/15/2016, Additional history exists DTAP/TDAP/TD VACCINE (3 - Td or Tdap) 05/09/2032 05/09/2022, 04/16/2011 COLONOSCOPY 08/30/2032 08/30/2022, 08/30/2022 COLORECTAL CANCER SCREENING 08/30/2032 RSV VACCINE (1 - 1-dose 75+ series) 2037 HPV VACCINE Aged Out No longer eligi ble based on patient's age to complete this topic MENINGITIS VACCINE Aged Out No longer eligible based on patient's age to complete this topic Procedures Procedure Name Priority Date/Time Associated Diagnosis Comments COLONOSCOPY Routine 08/30/2022 4:05 PM MASONRY TEACHER from Last 3 Months or Most Recently Relevant to Health Maintenance Results * COLONOSCOPY (08/30/2022 4:05 PM MASONRY TEACHER) COLONOSCOPY [facility] Patient Name: Rema Barney Procedure Date: 08/30/2022 4:05 PM Date of : 1960 Admit Type: Outpatient Age: 62 Gender: Female Attending MD: ANGIE RODRIGUEZ MD Total Sedation Time: See anesthesia report. Instrument Name: 254 - Pediatric Colonoscope Procedure: Colonoscopy Indications: Screening for colorectal malignant neoplasm Providers: ANGIE RODRIGUEZ MD (Doctor) Referring MD: Medicines: Monitored Anesthesia Care Complications: No immediate complications. Procedure: Pre-Anesthesia Assessment: - Prior to the procedure, a History and Physical was performed, and patient medications and allergies were reviewed. The patient is competent. The risks and benefits of the procedure and the sedation options and risks were discussed with the patient. All questions were answered and informed consent was obtained. Patient identification and proposed procedure were verified by the physician and the nurse in the procedure room. Mental Status Examination: alert and oriented. Airway Examination: normal oropharyngeal airway and neck mobility. Respiratory Examination: clear to auscultation. CV Examination: normal. Prophylactic Antibiotics: The patient does not require prophylactic antibiotics. Prior Anticoagulants: The patient has taken no anticoagulant or antiplatelet agents. ASA Grade Assessment: II - A patient with mild systemic disease. After reviewing the risks and benefits, the patient was deemed in satisfactory condition to undergo the procedure. The anesthesia plan was to use moderate sedation / analgesia (conscious sedation). Immediately prior to administration of medications, the patient was re-assessed for adequacy to receive sedatives. The heart rate, respiratory rate, oxygen saturations, blood pressure, adequacy of pulmonary ventilation, and response to care were monitored throughout the procedure. The physical status of the patient was re-assessed after the procedure. After obtaining informed consent, the colonoscope was passed under direct vision. Throughout the procedure, the patient's blood pressure, pulse, and oxygen saturations were monitored continuously. The Olympus Pediatric Colonoscope Model #[id number]-FY285W, Endora #254, SN # [id number] was introduced through the anus and advanced to 5 cm into the ileum. The colonoscopy was performed with ease. The patient tolerated the procedure well. The quality of the bowel preparation was adequate to identify polyps. The terminal ileum, ileocecal valve, appendiceal orifice, and rectum were photographed. Findings: The perianal and digital rectal examinations were normal other than a scare adn sinus on the right lateral gluteal region. Pertinent negatives include normal sphincter tone and no palpable rectal lesions. The terminal ileum appeared normal. A 6 mm polyp was found in the sigmoid colon. The polyp was semi-pedunculated . The polyp was removed with a hot snare. Resection and retrieval were complete. Estimated blood loss: none. Many small and large-mouthed diverticula were found in the sigmoid colon, descending colon, transverse colon and ascending colon. The exam was otherwise without abnormality. The retroflexed view of the distal rectum and anal verge was normal and showed no anal or rectal abnormalities. Impression: - The examined portion of the ileum was normal. - One 6 mm polyp in the sigmoid colon, removed with a hot snare. Resected and retrieved. - Diverticulosis in the sigmoid colon, in the descending colon, in the transverse colon and in the ascending colon. - The examination was otherwise normal. - The distal rectum and anal verge are normal on retroflexion view. Recommendation: - Repeat colonoscopy in 5-10 years for surveillance based on pathology results. Procedure Code(s): --- Professional --- 51984, Colonoscopy, flexible; with removal of tumor(s), polyp(s), or other lesion(s) by snare technique Diagnosis Code(s): --- Professional --- Z12.11, Encounter for screening for malignant neoplasm of colon K63.5, Polyp of colon K57.30, Diverticulosis of large intestine without perforation or abscess without bleeding CPT copyright 2020 [employer]. All rights reserved. The codes documented in this report are preliminary and upon wait staff review may be revised to meet current compliance requirements. ____ ANGIE RODRIGUEZ MD 08/30/2022 5:58:27 PM I was physically present for the entire viewing portion of the exam. ANGIE RODRIGUEZ MD Number of Addenda: 0 Note Initiated On: 08/30/2022 4:05 PM Procedure Date: 08/30/2022 4:05:43 PM Scope Withdrawal Time: 0 hours 21 minutes 13 seconds Total Procedure Duration: 0 hours 33 minutes 18 seconds Estimated Blood Loss: Scope In: 4:34:50 PM Scope Out: 5:08:08 PM RADIOLOGY RESULTS 08/30/2022 4:05 PM MASONRY TEACHER Angie Rodriguez MD PROCEDURES Final Resu lt RADIOLOGY RESULTS from Last 3 Months or Most Recently Relevant to Health Maintenance Insurance [facility] OUT OF STATE Care Teams Senior Strategy Analyst Relationship Specialty Start Date End Date Mirza Brown MD PCP - General Family Medicine 08/30/22
--- OUTSIDE RECORDS SUMMARY | 2025-02-22 16:52 | XMS_ITS | Clinical Summary ---
Author Organization [facility] Address [address] [address] Care Team Providers Care Behaviorist Name Role Phone Needs Pcp, Assignment Primary Care Provider [phone] Source Comments You are receiving this document [...] for each transition of care or referral. [employer] Allergies Active Allergy Reactions Criticality Noted Date Comments Meperidine Nausea And Vomiting 09/15/2017 Medications naproxen (NAPROSYN) 500 MG tablet TK 1 [...] upper extremity 018 Tobacco abuse 09/15/2017 Immunizations Immunization Administration Dates Next Due Influenza IIV4 (Quadrivalent) 0.5mL (73454) 09/01 Social History Tobacco Use Types Packs/Day Years Used Date Smoking Tobacco: Every Day Cigarettes Smokeless Tobacco: Never Comments Unknown Sex and Gender Information Value Date Recorded Sex Assigned at Not on file Legal Sex Female 4:18 AM CDT Gender Identity Not on file Sexual Orientation Not on file Last Filed Vital Signs Vital Sign Reading Time Taken Comments Blood Pressure 176/86 09/15/2017 1:28 PM BOTANY TECHNICIAN Pulse 103 09/15/2017 1:28 PM BOTANY TECHNICIAN Temperature - - Respiratory Rate - - Oxygen Saturation - - Inhaled Oxygen Concentration - - Weight 73.1 kg (161 lb 1.6 oz) 09/15/2017 1:28 P M BOTANY TECHNICIAN Height - - Body Mass Index - - Plan of Treatment Health Maintenance Due Date Last Done Comments Cervical Cancer Screening Due 1960 Colon Cancer Screening Plan Due 1960 Mammogram 1962 HIV Screening (Preventive Services) 1978 Adult Preventive Visit 1980 DTaP/Tdap/Td Vaccine (1 - Tdap) 1981 Cholesterol 2007 Pneumococcal Vaccine 50+ Yrs (1 of 1 - PCV) 2012 Zoster/Shingles Vaccine (1 of 2) 2012 COVID-19 Vaccine ( - 2023-2 5 season) 2024 Influenza Vaccine (Season Ended) 2025 09/15/19 18 RSV Vaccine (1 - 1-dose 75+ series) 2037 Hep C Screening (Preventive Services) Completed 09/15/2017 HepA Vaccine Aged Out No longer eligi ble based on patient's age to complete this topic HepB Vaccine Aged Out No longer eligi ble based on patient's age to complete this topic Hib Vaccine Aged Out No longer eligi ble based on patient's age to complete this topic IPV (Polio) Vaccine Aged Out No longe r eligible based on patient's age to complete this topic MCV4 Vaccine Aged Out No longer eligi ble based on patient's age to complete this topic Meningococcal B Vaccine Aged Out No l onger eligible based on patient's age to complete this topic Procedures Procedure Name Priority Date/Time Associated Diagnosis Comments HEPATITIS C ANTIBODY, WITH REFLEX (ANTI-HCV) Routine 09/15/2017 2:23 PM BOTANY TECHNICIAN Abnormal immunological finding in serum from Last 3 Months or Most Recently Relevant to Health Maintenance Results * HCAB - Hepatitis C Virus Rosario with Reflex In-House (09/15/2017 2:23 PM BOTANY TECHNICIAN) Hepatitis C Antibody Nonreactive Nonreactive PN ETHEL 09/15/2017 2:23 PM BOTANY TECHNICIAN 09/15/2017 6:09 PM BOTANY TECHNICIAN Narrative PN ETHEL - 09/15/2017 7:26 PM BOTANY TECHNICIAN Performed at [facility], [address] [place] [address] CLIA number [id number] Raphael Merchant MD LAB_1 Final Result [facility] [address] [place] [address] from Last 3 Months or Most Recently Relevant to Health Maintenance Insurance [facility] Care Teams Behaviorist Relationship Specialty Start Date End Date Needs Pcp, [place] [address] PCP - General 12/16/17
--- NOTE | 2025-02-22 17:00 | MM_ITS ---
Patient: EVARISTO TATE Facility:?[facility] Patient ID:?[id number] Site Patient ID:?[id number]. Site :?1960 Study:?XRay-Breast 3D Neal SCREENING-02/22/2025 6:01:19 PM Ordering Physician:Nikunj Blue Final Report: INDICATION: BILATERAL SCREENING MAMMOGRAM, ASYMPTOMATIC 64 Y/O FEMALE COMPARISON: 07/26/2022, 03/16/2019, 01/01/2018 TECHNIQUE: Digital mammogram in CC and MLO projections including computer-aided detection (CAD) and tomosynthesis. BREAST COMPOSITION: The breasts are heterogeneously dense, which may obscure small masses. FINDINGS: No suspicious findings. ASSESSMENT: BI-RADS 1 Negative RECOMMENDATION: Annual screening mammogram. A lay language report of this examination will be provided to the patient. Dictated by: Cholo Mishra MD @ 02/24/2025 10:23:52 Signed by:?Cholo Mishra MD @02/24/2025 10:23:52 AM (Electronic Signature)
--- OUTSIDE RECORDS SUMMARY | 2025-02-23 00:49 | XMS_ITS | Clinical Summary ---
Author Organization [facility] Address [address], [place] [address] Care Team Providers Care Deckhand Sponge Boat Name Role Phone Needs Pcp, Assignment Primary Care Provider [phone] Source Comments You are receiving this document [...] for each transition of care or referral. [employer] Allergies Active Allergy Reactions Criticality Noted Date [...] Dates Next Due Influenza IIV4 (Quadrivalent) 0.5mL (00760) 09/01 Social History Tobacco Use Types Packs/Day [...] Comments Blood Pressure 176/86 09/15/2017 1:28 PM BRICK WHEELER Pulse 103 09/15/2017 1:28 PM BRICK WHEELER Temperature - - Respiratory Rate - - Oxygen Saturation - - Inhaled Oxygen Concentration - - Weight 73.1 kg (161 lb 1.6 oz) 09/15/2017 1:28 P M BRICK WHEELER Height - - Body Mass Index - [...] WITH REFLEX (ANTI-HCV) Routine 09/15/2017 2:23 PM BRICK WHEELER Abnormal immunological finding in serum from Last 3 Months or Most Recently Relevant to Health Maintenance Results * HCAB - Hepatitis C Virus Rosario with Reflex In-House (09/15/2017 2:23 PM BRICK WHEELER) Hepatitis C Antibody Nonreactive Nonreactive PN ETHEL 09/15/2017 2:23 PM BRICK WHEELER 09/15/2017 6:09 PM BRICK WHEELER Narrative PN ETHEL - 09/15/2017 7:26 PM BRICK WHEELER Performed at [facility], [address] [place] [address] CLIA number [id number] Raphael Merchant MD LAB_1 Final Result [facility] [address] [place] [address] from Last 3 Months or Most Recently Relevant to Health Maintenance Insurance [facility] Care Teams Deckhand Sponge Boat Relationship Specialty Start Date End Date Needs Pcp, [place] [address] PCP - General 12/16/17
--- OUTSIDE RECORDS SUMMARY | 2025-02-23 00:49 | XMS_ITS | Clinical Summary ---
Author Organization [facility] Address [address] [place] [address] Care Team Providers Care Test Boring Crew Chief Name Role Phone Mirza Brown MD Primary Care Provider [phone] Allergies Active Allergy Reactions Criticality Noted Date [...] on file Legal Sex Female 3:13 AM PLASMA CUTTING MACHINE OPERATOR Gender Identity Not on file Sexual Orientation Not on file Last Filed Vital Signs Vital Sign Reading Time Taken Comments Blood Pressure 161/89 08/30/2022 7:15 PM PLASMA CUTTING MACHINE OPERATOR Pulse 75 08/30/2022 7:14 PM PLASMA CUTTING MACHINE OPERATOR Temperature 36.4 C (97.5 F) 08/30/2022 7:14 PM PLASMA CUTTING MACHINE OPERATOR Respiratory Rate 16 08/30/2022 7:15 PM PLASMA CUTTING MACHINE OPERATOR Oxygen Saturation 99% 08/30/2022 7:15 PM PLASMA CUTTING MACHINE OPERATOR Inhaled Oxygen Concentration - - Weight 56.7 kg (125 lb) 08/30/2022 2:12 PM PLASMA CUTTING MACHINE OPERATOR Height 160 cm (5' 3) 08/30/2022 2:12 PM PLASMA CUTTING MACHINE OPERATOR Body Mass Index 22.14 08/30/2022 2:12 PM PLASMA CUTTING MACHINE OPERATOR Plan of Treatment Health Maintenance Due Date [...] Diagnosis Comments COLONOSCOPY Routine 08/30/2022 4:05 PM PLASMA CUTTING MACHINE OPERATOR from Last 3 Months or Most Recently Relevant to Health Maintenance Results * COLONOSCOPY (08/30/2022 4:05 PM PLASMA CUTTING MACHINE OPERATOR) COLONOSCOPY [facility] Patient Name: Rema Barney Procedure Date: 08/30/2022 [...] monitored continuously. The Olympus Pediatric Colonoscope Model #[id number]-[id number], Endora #254, SN # [id number] was introduced through the anus and advanced [...] pathology results. Procedure Code(s): --- Professional --- 96973, Colonoscopy, flexible; with removal of tumor(s), polyp(s), or other lesion(s) by snare technique Diagnosis Code(s): --- Professional --- Z12.11, Encounter for screening for malignant neoplasm of colon K63.5, Polyp of colon K57.30, Diverticulosis of large intestine without perforation or abscess without bleeding CPT copyright 2020 [employer]. All rights reserved. The codes documented in this report are preliminary and upon dietetic tech review may be revised to meet current [...] 5:08:08 PM RADIOLOGY RESULTS 08/30/2022 4:05 PM PLASMA CUTTING MACHINE OPERATOR Angie Rodriguez MD PROCEDURES Final Resu lt RADIOLOGY RESULTS from Last 3 Months or Most Recently Relevant to Health Maintenance Insurance [facility] OUT OF STATE Care Teams Test Boring Crew Chief Relationship Specialty Start Date End Date Mirza Brown MD PCP - General Family Medicine 08/30/22
== END 2025-02-22 16:48 | disposition home or self-care (01) ==
PROVIDERS: PCP Family Medicine; Visit Provider Family Medicine
DX: Z12.31 Encounter for screening mammogram for malignant neoplasm of breast (principal); R92.333 Mammographic heterogeneous density, bilateral breasts
CPT/HCPCS: 77063; 77067

== ENCOUNTER 2025-03-25 08:45 | Outpatient (RCR) | payer OTHER, SELFPAY | END 2025-07-20 14:27 | disposition home or self-care (01) | PROVIDERS: PCP Family Medicine; Visit Provider Family Medicine | DX: M54.41 Lumbago with sciatica, right side (principal); G89.29 Other chronic pain; Z51.89 Encounter for other specified aftercare | CPT/HCPCS: 97110; 97140; 97162 ==